=== PATIENT | female | born 1955 | race Caucasian/White ===

== ENCOUNTER → 2017-12-12 21:22 | Outpatient (CLI) | payer MEDICARE, SELFPAY | PROVIDERS: Visit Provider Nurse Practitioner | DX: N39.0 Urinary tract infection, site not specified (principal) | CPT/HCPCS: 87077; 87086; 87088; 87186 ==

== ENCOUNTER → 2018-05-26 22:03 | Outpatient (CLI) | payer MEDICARE, SELFPAY ==
[2018-05-26 16:00] VITALS: BMI 35.4
== END ==
PROVIDERS: Family Provider Family Medicine; PCP Family Medicine; Referring Provider Nurse Practitioner; Visit Provider Nurse Practitioner
DX: R53.83 Other fatigue (principal)
CPT/HCPCS: 87077; 87086; 87088; 87186

== ENCOUNTER → 2018-06-08 22:00 | Outpatient (CLI) | payer MEDICARE, SELFPAY ==
[2018-06-08 16:25] VITALS: BMI 34.9
[2018-06-08 22:18] LABS: Absolute Lymphocyte Count 2.32 X10^3/ul (0.83-4.51); Basophil# 0.05 X10^3/uL; Basophil% 0.7 % (0-1); Eosinophil# 0.11 X10^3/uL; Eosinophils% 1.5 % (0-5); Hematocrit 45.7 % (37-47); Hemoglobin 14.8 g/dl (12.0-15.0); Lymphocyte # 2.32 X10^3/ul (4.0); Lymphocyte % 32.3 % (19-41); Mean Corp Hgb Conc 32.4 g/gl (32-36); Mean Corpuscular Hgb 29.7 pg (27.0-32.0); Mean Corpuscular Volume 91.8 fL (81-99); Mean Platelet Vol. 9.4 fl (6.2-12.0); Monocyte# 0.74 X10^3/uL; Monocyte% 10.3 % (0-10); Neutrophil # 3.95 X10^3/uL (2.7-7.7); Neutrophil % 54.9 % (47-70); Platelet Count 335 K/mm3 (150-450); RBC Distribution Width SD 46.1 fl (35.1-43.9); Red Blood Count 4.98 M/mm3 (4.2-5.4); White Blood Count 7.2 K/mm3 (4.4-11.0)
[2018-06-08 22:19] LABS: POSITIVE COUNT NO; POSITIVE DIFFERENTIAL NO; POSITIVE MORPHOLOGY NO
[2018-06-08 22:50] LABS: AST(SGOT) 15 U/L (15-37); Alanine Aminotransfer ALT/SGPT 25 U/L (13-56); Albumin, Serum 3.7 g/dL (3.2-5.0); Alkaline Phosphatase 82 U/L (45-117); Anion Gap 8 (5-15); BUN 22 mg/dL (7-18); BUN/Creat Ratio 22.9 RATIO (10-20); Calcium,Total 8.4 mg/dL (8.5-10.1); Chloride 107 mmol/L (98-107); Cholesterol 211 mg/dL (200); Creatinine, Serum 0.96 mg/dL (0.55-1.02); EST Glomerular Filtration Rate 62 mL/min (>60); Est Glom Filt Rate - Afr Amer 75 mL/min (>60); Globulin 3.7 g/dL (2.2-4.2); Glucose 95 mg/dL (74-106); High Density Lipoprotein 78 mg/dL; Protein, Total 7.4 g/dL (6.4-8.2); Sodium Level 139 mmol/L (136-145); Thyroid Stim Hormone (TSH) 1.05 uIU/mL (0.358-3.74); Triglycerides 182 mg/dL; Very Low Density Lipoprotein 36 mg/dL (5-40)
== END ==
PROVIDERS: Family Provider Family Medicine; PCP Family Medicine; Visit Provider Nurse Practitioner
DX: E78.00 Pure hypercholesterolemia, unspecified (principal); E55.9 Vitamin D deficiency, unspecified; R53.83 Other fatigue
CPT/HCPCS: 80053; 80061; 82652; 84443; 85025

== ENCOUNTER → 2018-12-03 23:09 | Outpatient (CLI) | payer MEDICARE, SELFPAY ==
--- NOTE | 2018-12-03 | LES_PTH ---
PATIENT: HOSSEIN VELA LOC: [facility] U#:[id number] AGE/SX: 69/F ROOM: RE12/03/[address]: ARPIT Johnston : 1955 BED: DIS: SPEC #: [id number] RECD: 12/03/18 23:18 STATUS: ILIA EZ #: [id number] EMIGDIO: 12/03/18 00:[address]: Emilie Hammond NP DEPT: SURGICAL PATHOLOGY RECD BY: Luis Keenan ENTERED: 12/04/18 08:48 SP TYPE: Lesion OTHR DR: Dr. Gilbert Jaime MD Tissues: Skin, NOS Procedures: PAS Fungus (control) Special Stain Group I Surgery Specimen Level IV HEADER OPERATION: Biopsy PRE-OP DIAGNOSIS: Superficial mycosis TISSUE SUBMITTED: Right flank MICROSCOPIC DIAGNOSIS Right flank lesion, punch biopsy: Dermal chronic inflammation. Negative for malignancy. Special stain for fungi is negative for organisms; matched controls are appropriate. SJ:sebastian 12/07/18 MICROSCOPIC DESCRIPTION Slides are reviewed. GROSS DESCRIPTION Received in fixative is one container labeled with the patient's name and designated right flank. The specimen consists of a punch biopsy of uriostegui skin measuring 0.7 x 0.7 x 0.3 cm. The specimen is inked, bisected and totally submitted in one cassette. / AM:sebastian 12/04/18 TC:3 CPT: 19672, 73276
[2018-12-03 15:10] VITALS: BMI 37.4
[2018-12-03 23:19] LABS: Absolute Lymphocyte Count 2.65 X10^3/uL (0.83-4.51); Absolute Neutrophil Count 2.7 X10^3/uL (2.0-7.7); Basophil# 0.04 X10^3/uL; Basophil% 0.7 % (0-1); Eosinophil# 0.19 X10^3/uL; Eosinophils% 3.1 % (0-5); Hematocrit 43.6 % (37-47); Hemoglobin 13.9 g/dL (12.0-15.0); Lymphocyte # 2.65 X10^3/ul (4.0); Lymphocyte % 43.6 % (19-41); Mean Corp Hgb Conc 31.9 g/dL (32-36); Mean Corpuscular Hgb 28.6 pg (27.0-32.0); Mean Corpuscular Volume 89.7 fL (81-99); Mean Platelet Vol. 9.6 fl (6.2-12.0); Monocyte# 0.52 X10^3/uL; Monocyte% 8.6 % (0-10); NRBC Flagged by Analyzer 0 % (0-5); Neutrophil # 2.67 X10^3/uL (2.7-7.7); Neutrophil % 43.8 % (47-70); Platelet Count 253 K/mm3 (150-450); RBC Distribution Width CV 13.2 % (11.6-14.6); RBC Distribution Width SD 43.2 fl (35.1-43.9); Red Blood Count 4.86 M/mm3 (4.2-5.4); White Blood Count 6.1 K/mm3 (4.4-11.0)
[2018-12-03 23:31] LABS: ALB/GLOB Ratio 1.1 RATIO (0.9-2.4); AST(SGOT) 28 U/L (15-37); Alanine Aminotransfer ALT/SGPT 37 U/L (13-56); Albumin, Serum 3.7 g/dL (3.2-5.0); Alkaline Phosphatase 61 U/L (45-117); Anion Gap 8 (5-15); BUN 18 mg/dL (7-18); BUN/Creat Ratio 22.7 RATIO (10-20); CRP 3.48 mg/L (0.0-3.0); Calcium,Total 8.9 mg/dL (8.5-10.1); Chloride 107 mmol/L (98-107); Creatinine, Serum 0.79 mg/dL (0.55-1.02); EST Glomerular Filtration Rate 78 mL/min (>60); Est Glom Filt Rate - Afr Amer 94 mL/min (>60); Globulin 3.3 g/dL (2.2-4.2); Glucose 136 mg/dL (74-106); Potassium 3.6 mmol/L (3.5-5.1); Sodium Level 141 mmol/L (136-145)
[2018-12-08 08:38] LABS: ANTINUCLEAR ANTIBODIES DIRECT Negative (Negative)
== END ==
PROVIDERS: Family Provider Family Medicine; PCP Family Medicine; Referring Provider Nurse Practitioner; Visit Provider Nurse Practitioner
DX: M25.542 Pain in joints of left hand (principal); M25.541 Pain in joints of right hand; M15.1 Heberden's nodes (with arthropathy)
CPT/HCPCS: 80053; 85025; 86038; 86140; 86225; 86235; 86431; 88305; 88312

== ENCOUNTER → 2018-12-11 23:22 | Outpatient (CLI) | payer MEDICARE, SELFPAY ==
[2018-12-03 15:10] VITALS: BMI 37.4
[2018-12-12 00:11] LABS: Thyroid Stim Hormone (TSH) 1.39 uIU/mL (0.358-3.74)
[2018-12-14 15:08] LABS: EBV Acute VCA IgM < 36.0 U/mL (0.0-35.9); EBV Early Antigen IgG <9.0 U/mL (0.0-8.9)
[2018-12-16 10:24] LABS: ANTINUCLEAR ANTIBODIES DIRECT Negative (Negative)
== END ==
PROVIDERS: Family Provider Family Medicine; PCP Family Medicine; Referring Provider Nurse Practitioner; Visit Provider Nurse Practitioner
DX: M25.542 Pain in joints of left hand (principal); M25.541 Pain in joints of right hand; M15.1 Heberden's nodes (with arthropathy); E03.9 Hypothyroidism, unspecified; R53.83 Other fatigue
CPT/HCPCS: 84443; 86038; 86225; 86235; 86663; 86664; 86665

== ENCOUNTER → 2019-04-16 21:58 | Outpatient (CLI) | payer MEDICARE, SELFPAY ==
[2019-04-16 16:06] VITALS: BMI 39.6
[2019-04-16 22:27] LABS: Anion Gap 7 (5-15); BUN 22 mg/dL (7-18); BUN/Creat Ratio 25.8 RATIO (10-20); Calcium,Total 8.9 mg/dL (8.5-10.1); Chloride 103 mmol/L (98-107); Creatinine, Serum 0.85 mg/dL (0.55-1.02); EST Glomerular Filtration Rate 71 mL/min (>60); Est Glom Filt Rate - Afr Amer 86 mL/min (>60); Glucose 99 mg/dL (74-106); Potassium 4.1 mmol/L (3.5-5.1); Sodium Level 138 mmol/L (136-145)
== END ==
PROVIDERS: Family Provider Family Medicine; PCP Family Medicine; Referring Provider Nurse Practitioner; Visit Provider Nurse Practitioner
DX: R60.9 Edema, unspecified (principal)
CPT/HCPCS: 80048

== ENCOUNTER → 2019-05-27 | Outpatient (CLI) | payer MEDICARE, SELFPAY ==
[2019-05-27 15:08] VITALS: BMI 39.6
[2019-05-27 21:48] LABS: Absolute Neutrophil Count 3.8 X10^3/uL (2.0-7.7); Basophil# 0.03 X10^3/uL; Basophil% 0.4 % (0-1); Eosinophil# 0.09 X10^3/uL; Eosinophils% 1.2 % (0-5); Hematocrit 46.5 % (37-47); Hemoglobin 14.4 g/dL (12.0-15.0); Lymphocyte % 38.2 % (19-41); Mean Corpuscular Hgb 27.7 pg (27.0-32.0); Mean Corpuscular Volume 89.6 fL (81-99); Mean Platelet Vol. 9.4 fl (6.2-12.0); Monocyte# 0.63 X10^3/uL; Monocyte% 8.6 % (0-10); NRBC Flagged by Analyzer 0 % (0-5); Neutrophil # 3.76 X10^3/uL (2.7-7.7); Neutrophil % 51.3 % (47-70); Platelet Count 367 K/mm3 (150-450); RBC Distribution Width CV 13.2 % (11.6-14.6); RBC Distribution Width SD 43.2 fl (35.1-43.9); Red Blood Count 5.19 M/mm3 (4.2-5.4); White Blood Count 7.3 K/mm3 (4.4-11.0)
[2019-05-27 21:53] LABS: AST(SGOT) 14 U/L (15-37); Alanine Aminotransfer ALT/SGPT 32 U/L (13-56); Albumin, Serum 3.6 g/dL (3.2-5.0); Alkaline Phosphatase 73 U/L (45-117); Anion Gap 6 (5-15); BUN 28 mg/dL (7-18); BUN/Creat Ratio 30.2 RATIO (10-20); Chloride 106 mmol/L (98-107); Cholesterol 219 mg/dL (200); Creatinine, Serum 0.93 mg/dL (0.55-1.02); EST Glomerular Filtration Rate 65 mL/min (>60); Est Glom Filt Rate - Afr Amer 78 mL/min (>60); Globulin 3.7 g/dL (2.2-4.2); Glucose 98 mg/dL (74-106); High Density Lipoprotein 76 mg/dL; Potassium 3.9 mmol/L (3.5-5.1); Protein, Total 7.3 g/dL (6.4-8.2); Sodium Level 140 mmol/L (136-145); Thyroid Stim Hormone (TSH) 2.67 uIU/mL (0.358-3.74); Triglycerides 162 mg/dL; Very Low Density Lipoprotein 32 mg/dL (5-40)
== END | disposition home or self-care (01) ==
PROVIDERS: PCP Family Medicine; Referring Provider Nurse Practitioner; Visit Provider Nurse Practitioner
DX: E03.9 Hypothyroidism, unspecified (principal); E78.00 Pure hypercholesterolemia, unspecified; R53.83 Other fatigue
CPT/HCPCS: 80053; 80061; 84443; 85025

== ENCOUNTER → 2019-11-30 | Outpatient (CLI) | payer MEDICARE, SELFPAY ==
[2019-11-30 17:13] VITALS: BMI 38.9
[2019-11-30 22:38] LABS: Thyroid Stim Hormone (TSH) 2.71 uIU/mL (0.358-3.74)
[2019-12-02 16:08] LABS: Endomysial Antibody IgA Negative (Negative)
[2019-12-02 17:47] LABS: Immunoglobulin A 311 mg/dL (87-352); t-Transglutaminase IgA <2 U/mL (0-3)
== END | disposition home or self-care (01) ==
PROVIDERS: Referring Provider Nurse Practitioner; Visit Provider Nurse Practitioner
DX: R19.7 Diarrhea, unspecified (principal); E03.9 Hypothyroidism, unspecified
CPT/HCPCS: 82784; 83516; 84443; 86255

== ENCOUNTER → 2020-05-31 | Outpatient (CLI) | payer MEDICARE, SELFPAY ==
[2020-05-31 15:43] VITALS: BMI 40.6
[2020-05-31 22:35] LABS: Absolute Lymphocyte Count 2.72 X10^3/uL (0.83-4.51); Absolute Neutrophil Count 3.8 X10^3/uL (2.0-7.7); Basophil# 0.05 X10^3/uL; Basophil% 0.7 % (0-1); Eosinophil# 0.32 X10^3/uL; Eosinophils% 4.3 % (0-5); Hemoglobin 13.7 g/dL (12.0-15.0); Lymphocyte # 2.72 X10^3/ul (4.0); Lymphocyte % 36.5 % (19-41); Mean Corp Hgb Conc 30.4 g/dL (32-36); Mean Corpuscular Hgb 27.6 pg (27.0-32.0); Mean Corpuscular Volume 90.5 fL (81-99); Mean Platelet Vol. 9.8 fl (6.2-12.0); Monocyte# 0.58 X10^3/uL; Monocyte% 7.8 % (0-10); NRBC Flagged by Analyzer 0 % (0-5); Neutrophil # 3.77 X10^3/uL (2.7-7.7); Neutrophil % 50.4 % (47-70); Platelet Count 317 K/mm3 (150-450); RBC Distribution Width CV 14.7 % (11.6-14.6); RBC Distribution Width SD 49.1 fl (35.1-43.9); Red Blood Count 4.97 M/mm3 (4.2-5.4); White Blood Count 7.5 K/mm3 (4.4-11.0)
[2020-05-31 22:56] LABS: Vitamin B12 814 pg/mL (211-911)
[2020-05-31 22:59] LABS: AST(SGOT) 42 U/L (15-37); Alanine Aminotransfer ALT/SGPT 51 U/L (13-56); Albumin, Serum 3.7 g/dL (3.2-5.0); Alkaline Phosphatase 98 U/L (45-117); Anion Gap 8 (5-15); BUN 17 mg/dL (7-18); Chloride 103 mmol/L (98-107); Cholesterol 217 mg/dL (200); Creatinine, Serum 0.68 mg/dL (0.55-1.02); EST Glomerular Filtration Rate 92 mL/min (>60); Est Glom Filt Rate - Afr Amer 111 mL/min (>60); Globulin 3.6 g/dL (2.2-4.2); Glucose 105 mg/dL (74-106); High Density Lipoprotein 51 mg/dL; Potassium 3.4 mmol/L (3.5-5.1); Protein, Total 7.3 g/dL (6.4-8.2); Sodium Level 139 mmol/L (136-145); Thyroid Stim Hormone (TSH) 1.14 uIU/mL (0.358-3.74); Triglycerides 214 mg/dL; Very Low Density Lipoprotein 43 mg/dL (5-40)
[2020-06-05 13:47] LABS: Vitamin D 1,25-Dihydroxy 36.2 pg/mL (19.9-79.3)
== END | disposition home or self-care (01) ==
PROVIDERS: Referring Provider Nurse Practitioner; Visit Provider Nurse Practitioner
DX: E78.5 Hyperlipidemia, unspecified (principal); E03.9 Hypothyroidism, unspecified; E55.9 Vitamin D deficiency, unspecified; F32.9 Major depressive disorder, single episode, unspecified; R53.83 Other fatigue
CPT/HCPCS: 80053; 80061; 82607; 82652; 84443; 85025

== ENCOUNTER 2021-07-17 21:41 | Outpatient (CLI) | payer MEDICARE, SELFPAY ==
[2021-07-17 21:51] LABS: Absolute Lymphocyte Count 3.42 X10^3/uL (0.83-4.51); Absolute Neutrophil Count 3.7 X10^3/uL (2.0-7.7); Basophil# 0.06 X10^3/uL; Basophil% 0.7 % (0-1); Eosinophil# 0.13 X10^3/uL; Eosinophils% 1.6 % (0-5); Hematocrit 47.6 % (37-47); Hemoglobin 15.7 g/dL (12.0-15.0); Lymphocyte # 3.42 X10^3/ul (0.83-4.51); Lymphocyte % 42.5 % (19-41); Mean Corpuscular Volume 93.9 fL (81-99); Mean Platelet Vol. 10.2 fl (6.2-12.0); Monocyte# 0.69 X10^3/uL; Monocyte% 8.6 % (0-10); NRBC Flagged by Analyzer 0 % (0-5); Neutrophil # 3.73 X10^3/uL (2.7-7.7); Neutrophil % 46.5 % (47-70); Platelet Count 325 K/mm3 (150-450); RBC Distribution Width CV 12.7 % (11.6-14.6); RBC Distribution Width SD 43.4 fl (35.1-43.9); Red Blood Count 5.07 M/mm3 (4.2-5.4)
[2021-07-17 22:13] LABS: AST(SGOT) 45 U/L (15-37); Alanine Aminotransfer ALT/SGPT 55 U/L (13-56); Alkaline Phosphatase 114 U/L (45-117); Anion Gap 7 (5-15); BUN 21 mg/dL (7-18); BUN/Creat Ratio 20.4 RATIO (10-20); Calcium,Total 9.4 mg/dL (8.5-10.1); Chloride 103 mmol/L (98-107); Cholesterol 191 mg/dL (200); Creatinine, Serum 1.03 mg/dL (0.55-1.02); EST Glomerular Filtration Rate 57 mL/min (>60); Est Glom Filt Rate - Afr Amer 69 mL/min (>60); Globulin 4.1 g/dL (2.2-4.2); Glucose 110 mg/dL (74-106); High Density Lipoprotein 56 mg/dL; Potassium 4.5 mmol/L (3.5-5.1); Protein, Total 8.1 g/dL (6.4-8.2); Sodium Level 137 mmol/L (136-145); Thyroid Stim Hormone (TSH) 5.67 uIU/mL (0.358-3.74); Triglycerides 137 mg/dL; Very Low Density Lipoprotein 27 mg/dL (5-40)
== END 2021-07-17 23:59 | disposition home or self-care (01) ==
PROVIDERS: Referring Provider Nurse Practitioner; Visit Provider Nurse Practitioner
DX: I10 Essential (primary) hypertension (principal); E03.9 Hypothyroidism, unspecified; E78.00 Pure hypercholesterolemia, unspecified
CPT/HCPCS: 80053; 80061; 84443; 85025

== ENCOUNTER → 2021-08-13 | Outpatient (CLI) | payer MEDICARE, SELFPAY ==
[2021-08-13 23:11] LABS: ALB/GLOB Ratio 0.9 RATIO (0.9-2.4); AST(SGOT) 44 U/L (15-37); Alanine Aminotransfer ALT/SGPT 66 U/L (13-56); Albumin, Serum 3.3 g/dL (3.2-5.0); Alkaline Phosphatase 119 U/L (45-117); Anion Gap 9 (5-15); BUN 11 mg/dL (7-18); BUN/Creat Ratio 17.4 RATIO (10-20); Calcium,Total 8.3 mg/dL (8.5-10.1); Chloride 103 mmol/L (98-107); Creatinine, Serum 0.63 mg/dL (0.55-1.02); EST Glomerular Filtration Rate 100 mL/min (>60); Est Glom Filt Rate - Afr Amer 121 mL/min (>60); Globulin 3.7 g/dL (2.2-4.2); Glucose 102 mg/dL (74-106); Potassium 3.4 mmol/L (3.5-5.1); Sodium Level 137 mmol/L (136-145); Thyroid Stim Hormone (TSH) 3.85 uIU/mL (0.358-3.74)
== END | disposition home or self-care (01) ==
PROVIDERS: Referring Provider Nurse Practitioner; Visit Provider Nurse Practitioner
DX: E03.9 Hypothyroidism, unspecified (principal); R74.8 Abnormal levels of other serum enzymes; R53.82 Chronic fatigue, unspecified
CPT/HCPCS: 80053; 84443

== ENCOUNTER → 2021-09-19 | Outpatient (CLI) | payer MEDICARE, SELFPAY ==
[2021-09-19 21:52] LABS: Absolute Lymphocyte Count 1.75 X10^3/uL (0.83-4.51); Absolute Neutrophil Count 1.7 X10^3/uL (2.0-7.7); Basophil# 0.02 X10^3/uL; Basophil% 0.5 % (0-1); Eosinophil# 0.02 X10^3/uL; Eosinophils% 0.5 % (0-5); Hematocrit 42.4 % (37-47); Hemoglobin 13.3 g/dL (12.0-15.0); Lymphocyte # 1.75 X10^3/ul (0.83-4.51); Lymphocyte % 42.2 % (19-41); Mean Corp Hgb Conc 31.4 g/dL (32-36); Mean Corpuscular Hgb 29.1 pg (27.0-32.0); Mean Corpuscular Volume 92.8 fL (81-99); Monocyte# 0.64 X10^3/uL; Monocyte% 15.4 % (0-10); NRBC Flagged by Analyzer 0 % (0-5); Neutrophil # 1.71 X10^3/uL (2.7-7.7); Neutrophil % 41.2 % (47-70); Platelet Count 242 K/mm3 (150-450); RBC Distribution Width CV 12.9 % (11.6-14.6); RBC Distribution Width SD 43.8 fl (35.1-43.9); Red Blood Count 4.57 M/mm3 (4.2-5.4); White Blood Count 4.2 K/mm3 (4.4-11.0)
[2021-09-19 22:10] LABS: AST(SGOT) 71 U/L (15-37); Alanine Aminotransfer ALT/SGPT 59 U/L (13-56); Albumin, Serum 3.5 g/dL (3.2-5.0); Alkaline Phosphatase 86 U/L (45-117); Anion Gap 9 (5-15); BUN 11 mg/dL (7-18); BUN/Creat Ratio 16.5 RATIO (10-20); Calcium,Total 8.8 mg/dL (8.5-10.1); Chloride 104 mmol/L (98-107); Creatinine, Serum 0.67 mg/dL (0.55-1.02); EST Glomerular Filtration Rate 94 mL/min (>60); Est Glom Filt Rate - Afr Amer 114 mL/min (>60); Globulin 3.5 g/dL (2.2-4.2); Glucose 111 mg/dL (74-106); Potassium 3.6 mmol/L (3.5-5.1); Sodium Level 139 mmol/L (136-145); Thyroid Stim Hormone (TSH) 0.27 uIU/mL (0.358-3.74)
[2021-09-21 08:52] LABS: Thyroid Peroxidase AB 48 IU/mL (0-34)
== END | disposition home or self-care (01) ==
PROVIDERS: Visit Provider Nurse Practitioner
DX: E53.8 Deficiency of other specified B group vitamins (principal); R74.8 Abnormal levels of other serum enzymes; J32.0 Chronic maxillary sinusitis; J40 Bronchitis, not specified as acute or chronic; H66.92 Otitis media, unspecified, left ear; R53.82 Chronic fatigue, unspecified; E03.9 Hypothyroidism, unspecified
CPT/HCPCS: 80053; 84443; 85025; 86376

== ENCOUNTER → 2021-11-20 | Outpatient (CLI) | payer MEDICARE, SELFPAY ==
[2021-11-20 23:26] LABS: AST(SGOT) 46 U/L (15-37); Alanine Aminotransfer ALT/SGPT 51 U/L (13-56); Albumin, Serum 3.8 g/dL (3.2-5.0); Alkaline Phosphatase 103 U/L (45-117); Anion Gap 5 (5-15); BUN 13 mg/dL (7-18); BUN/Creat Ratio 15.8 RATIO (10-20); Calcium,Total 9.4 mg/dL (8.5-10.1); Chloride 108 mmol/L (98-107); Creatinine, Serum 0.82 mg/dL (0.55-1.02); EST Glomerular Filtration Rate 73 mL/min (>60); Est Glom Filt Rate - Afr Amer 89 mL/min (>60); Globulin 3.9 g/dL (2.2-4.2); Glucose 118 mg/dL (74-106); Protein, Total 7.7 g/dL (6.4-8.2); Sodium Level 139 mmol/L (136-145)
[2021-11-22 13:08] LABS: Anti-Centromere B Ab <0.2 AI (0.0-0.9); Anti-Chromatin <0.2 AI (0.0-0.9); Anti-Jo <0.2 AI (0.0-0.9); Anti-Scleroderma-70 AB <0.2 AI (0.0-0.9); RNP Ab 0.4 AI (0.0-0.9); SJOGREN'S Anti-SS-A test < 0.2 AI (0.0-0.9); SJOGREN'S Anti-SS-B test < 0.2 AI (0.0-0.9); Smith Ab <0.2 AI (0.0-0.9)
[2021-11-22 16:26] LABS: Anti-dsDNA Ab <1 IU/mL (0-9)
== END | disposition home or self-care (01) ==
PROVIDERS: Visit Provider Nurse Practitioner
DX: K90.9 Intestinal malabsorption, unspecified (principal)
CPT/HCPCS: 80053; 86140; 86225; 86235

== ENCOUNTER → 2023-04-16 | Outpatient (CLI) | payer MEDICARE, SELFPAY ==
--- OUTSIDE RECORDS SUMMARY | 2023-04-16 22:36 | XMS RPT_ITS | CCD ---
Author Name Unknown Address [address] [place] [address] Organization [facility] Care Team Providers [employer] Consultant Name Role Phone MADI ALEXANDER Unavailable Unavailable BARRAZA, ALEXANDER Unavailable Unavailable NO REFERRING DR Unavailable Unavailable BARRAZA, ALEXANDER L Unavailable Unavailable MADI ALEXANDER L Unavailable Unavailable Gt Crawford MD Unavailable Gt Crawford MD Unavailable [phone] Davon DOVE [facility] Primary Care Provider [phone] Davon DOVE [facility] Primary Care Provider [phone] Madi ERCO MACHINE OPERATOR.Alexander CINTRON Primary Care Provide r Gt Crawford MD Unavailable Gt Crawford MD Unavailable [phone] Madi ERCO MACHINE OPERATOR.Alexander CINTRON Primary Care Provide r LILI OJEDA Referring Unavailable LILI OJEDA Attending Unavailable MADI, ALEXANDER L Primary Care Unavailable CHASE PAZ Referring Unavailable BARRAZA, ALEXANDER L Primary Care Unavailable BARRAZA, ALEXANDER L Primary Care Unavailable BARRAZA, ALEXANDER L Primary Care Unavailable BARRAZA, ALEXANDER L Primary Care Unavailable Allergies Allergy Classification Reported Allergen(s) Allergy Type Date of Onset Reaction(s) Facility (1 source) bacitracin / polymyxin b; Translations: [POLYSPORIN] Drug Allergy [facility] Repository (18 sources) sulfiSOXAZOLE; Translations: [GANTRISIN] Drug Allergy 6 Cough, Other: See Comments [facility] Repository (1 source) SHELLFISH CONTAINING; Translations: [SHELLFISH CONTAINING] Propensity to adverse reactions (disorder) [facility] Repository (1 source) SULFA(SULFONAMID E AN; Translations: [SULFA(SULFONAMI DE AN] Propensity to adverse reactions (disorder) [facility] Repository (1 source) Shellfish; Translations: [SHELLFISH] Propensity to adverse reactions to food (disorder) 3 [facility] Repository (17 sources) Sulfonamides (Antibiotic); Translations: [SULFA (SULFONAMIDE ANTIBIOTICS)] Propensity to adverse reactions to drug (disorder) 2 Shortness of Breath [facility] Repository (17 sources) BACITRACIN-POLYM YXIN B; Translations: [BACITRACIN-POLY MYXIN B] Propensity to adverse reactions to drug (disorder) 6 Rash, Hives [facility] Repository (16 sources) Vancomycin; Translations: [VANCOMYCIN] Drug Allergy 1 Rash [facility] Medications Current Medications Medication Drug Class(es) Dates Sig (Normalized) Sig (Original) ALPRAZolam 0.25 mg oral tablet (13 sources) Benzodiazepine Start: 09-04-2021 End: 05-20-2022 take 1 tablet by mouth at bedtime as needed for anxiety ALPRAZolam (XANAX) 0.25 mg tablet Indications: Anxiety neurosis Take 1 tablet by mouth at bedtime as needed for anxiety for up to 180 days. 30 tablet 5 11/21/2021 05/20/2022 Active Completed/Discontinued Medications Medication Drug Class(es) Dates Sig (Normalized) Sig (Original) amoxicillin 875 mg / clavulanate 125 mg oral tablet (12 sources) Penicillin-class Antibacterial Start: 08-13-2021 End: 09-10-2022 take 1 tablet by mouth twice daily amoxicillin-clavul anic acid (AUGMENTIN) 875-125 mg per tablet Take 1 tablet by mouth twice daily. 0 08/13/2021 09/10/2022 Discontinued (Course of therapy completed) Problems Active Problems Problem Classification Problem Date Documented Da te Episodic/Chronic Anxiety disorders (17 sources) Mixed anxiety and depressive disorder; Translations: [Anxiety disorder, unspecified] Onset: 12-28-2020 12-28-2020 Chronic Disorders of lipid metabolism (14 sources) Hypercholesterolemi a; Translations: [Pure hypercholesterolemi a, unspecified] Onset: 03-02-2020 03-02-2020 Chronic Essential hypertension (15 sources) Hypertensive disorder; Translations: [Essential (primary) hypertension] Onset: 10-28-2020 10-28-2020 Chronic Mood disorders (1 source) Mood disorders; Translations: [Anxiety and depression] Onset: 12-28-2020 Nausea and vomiting (15 sources) Nausea and vomiting; Translations: [Nausea with vomiting, unspecified] Onset: 11-03-2020 11-03-2020 Episodic Nutritional deficiencies (20 sources) Vitamin D deficiency; Translations: [Vitamin D deficiency, unspecified] Onset: 02-17-2013 02-17-2013 Chronic Osteoarthritis (15 sources) Unilateral primary osteoarthritis, left knee; Translations: [Osteoarthritis of knee] Onset: 02-21-2014 02-21-2014 Chronic Other circulatory disease (14 sources) Raynaud's disease; Translations: [Raynaud's syndrome without gangrene] Onset: 09-12-2011 01-04-2013 Chronic Other connective tissue disease (14 sources) History of total knee arthroplasty; Translations: [Presence of left artificial knee joint] Onset: 08-02-2020 08-02-2020 Chronic Other gastrointestinal disorders (1 source) Swollen abdomen; Translations: [Abdominal distension (gaseous)] Episodic Other liver diseases (2 sources) Lesion of liver; Translations: [Liver disease, unspecified] Chronic Other liver diseases (1 source) Enzyme level - finding; Translations: [Abnormal levels of other serum enzymes] Episodic Other non-traumatic joint disorders (1 source) Chronic pain of right upper limb; Translations: [Pain in right shoulder] Episodic Other non-traumatic joint disorders (1 source) Shoulder pain; Translations: [Pain in right shoulder] Episodic Other nutritional; endocrine; and metabolic disorders (14 sources) Obese class II; Translations: [Obesity, unspecified] Onset: 03-13-2020 07-14-2020 Chronic Other nutritional; endocrine; and metabolic disorders (14 sources) Body mass index 40+ - severely obese; Translations: [Morbid (severe) obesity due to excess calories] Onset: 05-18-2021 05-18-2021 Chronic Other screening for suspected conditions (not mental disorders or infectious disease) (1 source) Radiology result abnormal; Translations: [Abnormal findings on diagnostic imaging of other specified body structures] Chronic Pancreatic disorders (not diabetes) (16 sources) Acute necrotizing pancreatitis; Translations: [Acute pancreatitis with uninfected necrosis, unspecified] Onset: 10-18-2020 11-03-2020 Episodic Phlebitis; thrombophlebitis and thromboembolism (17 sources) Acute thrombosis of splenic vein; Translations: [Acute embolism and thrombosis of other specified veins] Onset: 11-11-2020 11-11-2020 Episodic Spondylosis; intervertebral disc disorders; other back problems (14 sources) Backache; Translations: [Dorsalgia, unspecified] 01-04-2013 Episodic Thyroid disorders (14 sources) Disorder of thyroid gland; Translations: [Disorder of thyroid, unspecified] 10-28-2020 Episodic Past or Other Problems Problem Classification Problem Date Documented Date Episodic/Chronic Abdominal pain (1 source) Epigastric pain; Translations: [Epigastric pain] Onset: 07-03-2022 Episodic Biliary tract disease (14 sources) Acute cholecystitis; Translations: [Acute cholecystitis] Onset: 09-05-2020 09-07-2020 Episodic Other connective tissue disease (2 sources) Calcaneal spur, left foot; Translations: [Pain in left foot] Onset: 10-28-2016 Episodic Other connective tissue disease (14 sources) Plantar fasciitis of right foot; Translations: [Plantar fascial fibromatosis] Onset: 05-26-2015 05-26-2015 Episodic Other non-traumatic joint disorders (3 sources) Pain in left knee; Translations: [PAIN IN LEFT KNEE] Onset: 10-28-2016 Episodic Other screening for suspected conditions (not mental disorders or infectious disease) (1 source) Abnormal results of liver function studies; Translations: [Nonspecific abnormal results of liver function study] Onset: 01-21-2022 Episodic Residual codes; unclassified (14 sources) History of arthroscopy of knee joint; Translations: [Other specified postprocedural states] Onset: 03-14-2020 03-22-2020 Episodic Results Test Name Value Interpretation Reference Range Facil ity Vital Signs Date Time Vital Sign Value Performing Clinician Chas sherman 09-10-2022 10:29-0400 Body temperature 96.6 [degF] Lili Ojeda MD Work Phone: [facility] 09-10-2022 10:29-0400 Body weight 113.04 kg Lili Ojeda MD Work Phone: [facility] 09-10-2022 10:29-0400 Diastolic blood pressure 66 mm[Hg] Lili Ojeda MD Work Phone: [facility] 09-10-2022 10:29-0400 Heart rate 80 /min Lili Ojeda MD Work Phone: [facility] 09-10-2022 10:29-0400 SaO2% (BldA) [Mass fraction] 95 % Lili Ojeda MD Work Phone: [facility] 09-10-2022 10:29-0400 Systolic blood pressure 105 mm[Hg] Lili Ojeda MD Work Phone: [facility] 09-04-2021 10:28-0400 Body temperature 97 [degF] Lili Ojeda MD Work Phone: [facility] 09-04-2021 10:28-0400 Body weight 106.19 kg Lili Ojeda MD Work Phone: [facility] 09-04-2021 10:28-0400 Diastolic blood pressure 77 mm[Hg] Lili Ojeda MD Work Phone: [facility] 09-04-2021 10:28-0400 Heart rate 88 /min Lili Ojeda MD Work Phone: [facility] 09-04-2021 10:28-0400 SaO2% (BldA) [Mass fraction] 97 % Lili Ojeda MD Work Phone: [facility] 09-04-2021 10:28-0400 Systolic blood pressure 127 mm[Hg] Lili Ojeda MD Work Phone: [facility] 08-17-2021 09:33-0400 Body height 167.6 cm Alvin Vásquez MD Work Phone: [facility] 08-17-2021 09:33-0400 Body weight 102.51 kg Alvin Vásquez MD Work Phone: [facility] Encounters Encounter Date Encounter Type Care Provider Facility Start: 11-26-2022 End: 11-26-2022 Emergency department patient visit ALEXANDER BARRAZA Facility:[facility] Start: 11-25-2022 End: 11-26-2022 ambulatory ALEXANDERJadiel BARRAZA Facility:[facility] Start: 09-10-2022 End: 09-10-2022 ambulatory LILI OJEDA Facility:[facility] Start: 09-10-2022 End: 09-10-2022 Office outpatient visit 15 minutes Lili Ojeda MD Work Phone: Hematology/Oncology Procedures Date Procedure Procedure Detail Performing Clinician Start: 10-17-2021 Mri abdomen w/o & w/contrast material Chase Paz MD Work Phone: Start: 09-04-2021 Blood count complete auto&auto difrntl wbc Lili Ojeda MD Work Phone: Start: 08-17-2021 Arthrocentesis aspir &/inj major jt/bursa w/o us Alvin Vásquez MD Work Phone: Start: 10-27-2017 Mammography Alvin monte MD Work Phone: Plan of Treatment Date Care Activity Detail Author Start: 07-03-2025 DIABETES SCREEN DIABETES SCREEN [facility] Start: 03-28-2025 Urine microalbumin profile DTAP,TDAP,TD (2 - Td or Tdap) [facility] Start: 10-09-2024 DIABETES SCREEN DIABETES SCREEN [facility] Start: 09-04-2024 DIABETES SCREEN DIABETES SCREEN [facility] Start: 08-05-2024 DIABETES SCREEN DIABETES SCREEN [facility] Start: 09-11-2023 BP CONTROLLED (<130/80) BP CON TROLLED (<130/80) [facility] Start: 12-20-2022 Influenza vaccination INFLUENZ A (Season Ended) [facility] Start: 09-04-2022 BP CONTROLLED (<130/80) BP CON TROLLED (<130/80) [facility] Start: 04-21-2022 ADVANCE DIRECTIVE DISCUSSION ADVANCE DIRECTIVE DISCUSSION [facility] Start: 12-20-2021 Influenza vaccination [facility] Start: 10-23-2021 End: 12-23-2021 CBC W Auto Differential panel - Blood CBC + DIFF Lab Routine Abdominal distention Abnormal levels of other serum enzymes Expected: 10/23/2021, Expires: 12/23/2021 [facility] Work Phone: Immunizations Immunization Date Immunization Notes Care Provider Nasim bernardphani 03-28-2015 tetanus toxoid, redu jane diphtheria toxoid, and acellular pertussis vaccine, adsorbed Alvin Vásquez MD Work Phone: [facility] Payers Date Payer Category Payer Medicare HU[employer]NA MEDICARE HU[employer]NA MEDICARE PPO [id number] 2022-Present [phone] [place] [address] PPO [id number] 2017 Medicare HUMANA MEDICARE HU[employer]NA MEDICARE PPO [id number] 2017-Present [phone] [address] [place] [address] PPO [id number] 2017 Private Health Insurance [id number] Social History Date Type Detail Facility Start: 05-26-2014 End: 03-02-2020 Tobacco smoking status NHIS Ex-smoker [facility] End: 05-26-1981 History of tobacco use Current smoker [facility] Start: 05-26-2014 End: 03-02-2020 Tobacco use and exposure Smokeless tobacco non-user [facility] Start: 05-18-2021 End: 09-10-2022 Alcohol intake Current non-drinker of alcohol (finding) [facility] Start: 03-17-2020 History SDOH Financial 5 [facility] Start: 03-17-2020 History SDOH Food Worry 1 [facility] Start: 03-17-2020 History SDOH Transpo rt Med 2 [facility] Start: 1955 Sex Assigned At Female [facility] Start: 07-28-2021 End: 08-07-2021 Exposure to SARS-CoV-2 (event) Unable to assess [facility] Start: 08-07-2021 End: 11-12-2021 Exposure to SARS-CoV-2 (event) Not sure [facility] End: 05-26-1981 History of tobacco use Cigarette Smoker [facility] Work Phone: Medical Equipment Procedure Code Equipment Code Equipment Origin al Text Equipment Identifier Dates Cement Simplex P Bone Radiopaque Full Dose Sterile - [id number] Start: 03-13-2020 Cement Simplex P Bone Radiopaque Full Dose Sterile - [id number] Start: 07-31-2020 Component Triath tova 5 Femoral Cruciate Retain Cemented Knee Right - [id number] Start: 03-13-2020 Insert Triathlon 4 9mm Tibial Bearing Cruciate Retain Sterile Knee - [id number] Start: 03-13-2020 Component Triath tova 5 Femoral Cruciate Retain Cemented Knee Left - [id number] Start: 07-31-2020 Insert Triathlon 4 9mm Tibial Bearing Cruciate Retain Sterile Knee - [id number] Start: 07-31-2020 Component Triath tova 35mm 10mm Patellar Asymmetric Knee - [id number] Start: 03-13-2020 Component Triath tova 35mm 10mm Patellar Asymmetric Knee - [id number] Start: 07-31-2020 Baseplate Triath tova 4 Tibial Primary Cement Knee - [id number] Start: 03-13-2020 Baseplate Triath tova 4 Tibial Primary Cement Knee - [id number] Start: 07-31-2020 Goals Date Patient Goal Desired Activity /State Clinical Notes 01-04-2021 to 09-10-2022 Patient InstructionsLili Ojeda MD - 09/10/2022 10:54 AM EDTTelephone Encounter - Bekah Mahan LPN - 07/12/2022 8:56 AM EDTTelephone Encounter - Magnolia March - 07/05/2022 1:28 PM EDT Note Date & Type Note Facility 09-10-2022 Note HNO ID: [id number] Author: Lili Ojeda MD Service: ? Author Type: Physician Type: Progress Notes Filed: 10/09/2022 11:58 PM Note Text: Referring physician: Christiano Lloyd DO Presenting complaint: Patient Poppy Carrera returns for follow-up on splenic vein thrombosis and anticoagulation. 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 Patient was discharged on 11/14/2020 on full dose Lovenox. Patient was transitioned to xarelto 20 mg daily on 2020. Plan: CT abdomen and pelvis with contrast on 08/05/2021 showed persistent splenic vein thrombosis with varices, hepatomegaly with diffuse fatty change, hypoattenuating enhancing right hepatic lobe lesion measuring before about 1.8 cm x 1.6 cm but somewhat smaller on current imaging. Continue chronic anticoagulation with Xarelto. Rx was sent to her pharmacy. (K76.9) Liver lesion Comment: CT abdomen and pelvis with contrast on 03/05/2021 showed resolved peripancreatic inflammation, persistent splenic vein thrombosis with varices, hepatomegaly with diffuse fatty change, enhancing right hepatic lobe lesion measuring 1.8 cm x 1.[address] abdomen and pelvis with contrast on 08/05/2021 showed persistent splenic vein thrombosis with varices, hepatomegaly with diffuse fatty change, hypoattenuating enhancing right hepatic lobe lesion measuring before about 1.8 cm x 1.6 cm but somewhat smaller on current imaging. She underwent liver CT guided biopsy on 11/12/2021 with report of steatohepatitis with perisinusoidal fibrosis and periportal fibrosis. Reportedly diagnosis of cirrhosis was discussed by GI. Plan: continue follow-up with Dr. Chase Paz with GI. Return in about 53 weeks (around 09/16/2023) for follow-up with provider. Mild complexity decision making/ counseling/ care I spent 20 minutes in the visit, with more than 50% of the total [id number] time of the visit in counseling / coordination of care. 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 Patient was discharged on 11/14/2020 on full dose Lovenox. The patient's administered Lovenox. Patient was transitioned to xarelto 20 mg daily on 2020. CT abdomen and pelvis with contrast on 03/05/2021 showed resolved peripancreatic inflammation, persistent splenic vein thrombosis with varices, hepatomegaly with diffuse fatty change, enhancing right hepatic lobe lesion measuring 1.8 cm x 1.[address] abdomen and pelvis with contrast on 08/05/2021 showed persistent splenic vein thrombosis with varices, hepatomegaly with diffuse fatty change, hypoattenuating enhancing right hepatic lobe lesion measuring before about 1.8 cm x 1.6 cm but somewhat smaller on current imaging. She underwent liver CT guided biopsy on 11/12/2021 with report of steatohepatitis with perisinusoidal fibrosis and periportal fibrosis. Reportedly diagnosis of cirrhosis was discussed by GI. She agrees to continue anticoagulation with Xarelto. PAST MEDICAL HISTORY Diagnosis Date Anemia Anxiety and depression with anxiety Attention deficit hyperactivity disorder Back pain herniated discs, pain management Bronchitis Candidiasis Chronic meniscal tear of knee 02/21/[address] Stroud- pain managment- not since ~2018 Hamstring tear 2011 right/ had hematoma/ abscess /sepsis History of acute pancreatitis 2020 after LS alexis Hypertension Hypokalemia Menopause Osteoarthritis of knees, bilateral Raynaud disease 09/12/2011 purple toes/ sometimes a couple of fingers Subcutaneous hematoma 2012 R thigh s/p hamstring tear infected s/p drain Thyroid disease hypothyroid PAST SURGICAL HISTORY Procedure Laterality Date ARTHROSCOPY KNEE DIAGNOSTIC W/WO SYNOVIAL BX SPX 03/31/2014 Arthroscopy, knee left ARTHRP KNE CONDYLEANDPLATU MEDIALANDLAT COMPARTMENTS Right 2019 COLONOSCOPY DILATION AND CURETTAGE 1989 bleeding KNEE ARTHROSCOP MENISCUS REPAIR MED/LAT Left 2017 LAPAROSCOPY SURG CHOLECYSTECTOMY 08/2020 PAST SURGICAL HISTORY OF picc line and drain tubes for hamstring infection TOTAL KNEE REPLACEMENT Left 07/2020 FAMILY HISTORY Problem Relation Age of Onset Coronary Artery Disease Mother 58 1VCABG Accidental Mother 83 fell AND had brain bleed, age ~83 Diabetes Father Lymphoma Father age ~74 Systemic Lupus Erythematosus Sister (more content not included)... [facility] 09-10-2022 Instructions Lili Ojeda MD - 09/10/2022 11:37 AM EDT Please schedule follow-up with Dr. Ojeda Thank you documented in this encounter [facility] 09-10-2022 History of Presen t illness Narrative Referring physician: Christiano Lloyd DO Presenting complaint: Patient Poppy Carrera returns for follow-up on splenic vein thrombosis and anticoagulation. 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 Patient was discharged on 11/14/2020 on full dose Lovenox. Patient was transitioned to xarelto 20 mg daily on 2020. Plan: CT abdomen and pelvis with contrast on 08/05/2021 showed persistent splenic vein thrombosis with varices, hepatomegaly with diffuse fatty change, hypoattenuating enhancing right hepatic lobe lesion measuring before about 1.8 cm x 1.6 cm but somewhat smaller on current imaging. Continue chronic anticoagulation with Xarelto. Rx was sent to her pharmacy. (K76.9) Liver lesion Comment: CT abdomen and pelvis with contrast on 03/05/2021 showed resolved peripancreatic inflammation, persistent splenic vein thrombosis with varices, hepatomegaly with diffuse fatty change, enhancing right hepatic lobe lesion measuring 1.8 cm x 1.[address] abdomen and pelvis with contrast on 08/05/2021 showed persistent splenic vein thrombosis with varices, hepatomegaly with diffuse fatty change, hypoattenuating enhancing right hepatic lobe lesion measuring before about 1.8 cm x 1.6 cm but somewhat smaller on current imaging. She underwent liver CT guided biopsy on 11/12/2021 with report of steatohepatitis with perisinusoidal fibrosis and periportal fibrosis. Reportedly diagnosis of cirrhosis was discussed by GI. Plan: continue follow-up with Dr. Chase Paz with GI. Return in about 53 weeks (around 09/16/2023) for follow-up with provider. Mild complexity decision making/ counseling/ care I spent 20 minutes in the visit, with more than 50% of the total [id number] time of the visit in counseling / coordination of care. 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 Patient was discharged on 11/14/2020 on full dose Lovenox. The patient's administered Lovenox. Patient was transitioned to xarelto 20 mg daily on 2020. CT abdomen and pelvis with contrast on 03/05/2021 showed resolved peripancreatic inflammation, persistent splenic vein thrombosis with varices, hepatomegaly with diffuse fatty change, enhancing right hepatic lobe lesion measuring 1.8 cm x 1.[address] abdomen and pelvis with contrast on 08/05/2021 showed persistent splenic vein thrombosis with varices, hepatomegaly with diffuse fatty change, hypoattenuating enhancing right hepatic lobe lesion measuring before about 1.8 cm x 1.6 cm but somewhat smaller on current imaging. She underwent liver CT guided biopsy on 11/12/2021 with report of steatohepatitis with perisinusoidal fibrosis and periportal fibrosis. Reportedly diagnosis of cirrhosis was discussed by GI. She agrees to continue anticoagulation with Xarelto. PAST MEDICAL HISTORY Diagnosis Date Anemia Anxiety and depression with anxiety Attention deficit hyperactivity disorder Back pain herniated discs, pain management Bronchitis Candidiasis Chronic meniscal tear of knee 02/21/[address] Stroud- pain managment- not since ~2018 Hamstring tear 2011 right/ had hematoma/ abscess /sepsis History of acute pancreatitis 2020 after LS alexis Hypertension Hypokalemia Menopause Osteoarthritis of knees, bilateral Raynaud disease 09/12/2011 purple toes/ sometimes a couple of fingers Subcutaneous hematoma 2012 R thigh s/p hamstring tear infected s/p drain Thyroid disease hypothyroid PAST SURGICAL HISTORY Procedure Laterality Date ARTHROSCOPY KNEE DIAGNOSTIC W/WO SYNOVIAL BX SPX 03/31/2014 Arthroscopy, knee left ARTHRP KNE CONDYLE&PLATU MEDIAL&LAT COMPARTMENTS Right 2019 COLONOSCOPY DILATION & CURETTAGE 1989 bleeding KNEE ARTHROSCOP MENISCUS REPAIR MED/LAT Left 2017 LAPAROSCOPY SURG CHOLECYSTECTOMY 08/2020 PAST SURGICAL HISTORY OF picc line and drain tubes for hamstring infection TOTAL KNEE REPLACEMENT Left 07/2020 FAMILY HISTORY Problem Relation Age of Onset Coronary Artery Disease Mother 58 1VCABG Accidental Mother 83 fell & had brain bleed, age ~83 Diabetes Father Lymphoma Father age ~74 Systemic Lupus Erythematosus Sister No Known Problems Sister Cancer Paternal cousin ?maybe breast Cervical Cancer No Family History Ovarian cancer No Family History Uterine Cancer No Family History Colon Cancer No Family History Pancreatic Cancer No Family History Prostate Cancer No Family History SOCIAL HISTORY Social History Tobacco Use Smoking status: Former Types: Cigarettes Quit date: 05/26/1981 Years since quittin.4 Smokeless tobacco: Never Vaping Use Vaping Use: Never used Substance Use Topics Alcohol use: No Drug use: No Comment: no reported history ALLERGIES: ALLERGIES Allergen Reactions Gantrisin Cough, Other: See Comments wheeze Polysporin [Bacitra* Rash, Hives Sulfa (Sulfonamide * Shortness of Breath Vancomycin Rash MEDICATIONS: Current Outpatient Medications Medication Sig lisinopril (ZESTRIL, PRINIVIL) 20 mg tablet Take 20 mg by mouth once daily. Lactobacillus acidophilus (PROBIOTIC ORAL) Take by mouth. ARIPiprazole (ABILIFY) 2 mg tablet Take 1 tablet by mouth once daily. levothyroxine (SYNTHROID) 112 mcg tablet Take 1 tablet by mouth once daily. venlafaxine (EFFEXOR) 37.5 mg tablet Take 37.5 mg by mouth once daily. Calcium Carbonate-Vitamin D3 180-5,000 mg-unit tab Take by mouth. rivaroxaban (XARELTO) 20 mg tablet Take 1 tablet by mouth daily with dinner. No current facility-administered medications for this visit. REVIEW OF SYSTEMS: Review of Systems Constitutional: Negative for chills and fatigue. HENT: Negative for mouth sores and trouble swallowing. Eyes: Negative for eye problems and icterus. Respiratory: Negative for chest tightness, cough, hemoptysis and shortness of breath. Cardiovascular: Negative for chest pain and palpitations. Gastrointestinal: Negative for abdominal distention and blood in stool. Endocrine: Negative for hot flashes. Genitourinary: Negative for difficulty urinating and hematuria. Musculoskeletal: Negative for back pain, gait problem and neck pain. Skin: Negative for itching, rash and wound. Neurological: Negative for gait problem and light-headedness. Hematological: Negative for adenopathy. Bruises/bleeds easily. Psychiatric/Behavioral: Negative for decreased concentration and depression. PHYSICAL EXAMINATION: VITALS: BP 105/66 Pulse 80 Temp (Src) 96.6 (Temporal) Wt 249 lb 3.2 oz (113.0kg) SpO2 95% Physical Exam Vitals and nursing note reviewed. Constitutional: General: She is not in acute distress. Appearance: She is not toxic-appearing or diaphoretic. HENT: Head: Normocephalic and atraumatic. Eyes: General: No scleral icterus. Cardiovascular: Rate and Rhythm: Normal rate and regular rhythm. Heart sounds: Normal heart sounds. No murmur heard. Pulmonary: Effort: Pulmonary effort is normal. No respiratory distress. Breath sounds: Normal breath sounds. Abdominal: General: There is no distension. Musculoskeletal: General: No swelling. Cervical back: Neck supple. Skin: Coloration: Skin is not pale. Neurological: Mental Status: She is alert. Mental status is at baseline. Psychiatric: Mood and Affect: Mood normal. Behavior: Behavior normal. Thought Content: Thought content normal. Judgment: Judgment normal. LABS: 1. WBC Date Value Ref Range Status 07/03/2022 6.60 3.70 - 11.00 k/uL Final RBC Date Value Ref Range Status 07/03/2022 4.89 3.90 - 5.20 m/uL Final Hemoglobin Date Value Ref Range Status 07/03/2022 14.5 11.5 - 15.5 g/dL Final Hematocrit Date Value Ref Range Status 07/03/2022 44.6 36.0 - 46.0 % Final MCV Date Value Ref Range Status 07/03/2022 91.2 80.0 - 100.0 fL Final MCH Date Value Ref Range Status 07/03/2022 29.7 26.0 - 34.0 pg Final MCHC Date Value Ref Range Status 07/03/2022 32.5 30.5 - 36.0 g/dL Final RDW-CV Date Value Ref Range Status 07/03/2022 14.3 11.5 - 15.0 % Final Platelet Count Date Value Ref Range Status 07/03/2022 250 150 - 400 k/uL Final MPV Date Value Ref Range Status 07/03/2022 10.0 9.0 - 12.7 fL Final Abs Neut Date Value Ref Range Status 07/03/2022 3.15 1.45 - 7.50 k/uL Final Lymphocytes % Date Value Ref Range Status 07/03/2022 41.7 % Final Abs Lymph Date Value Ref Range Status 07/03/2022 2.75 1.00 - 4.00 k/uL Final Monocytes % Date Value Ref Range Status 07/03/2022 7.9 % Final Abs Woodruff Date Value Ref Range Status 07/03/2022 0.52 <0.87 k/uL Final Eosinophils % Date Value Ref Range Status 07/03/2022 2.0 % Final Abs Eosin Date Value Ref Range Status 07/03/2022 0.13 <0.46 k/uL Final Basophils % Date Value Ref Range Status 07/03/2022 0.6 % Final Abs Baso Date Value Ref Range Status 07/03/2022 0.04 <0.11 k/uL Final 2. Glucose (mg/dL) Date Value 07/03/2022 121 03/05/2021 98 Potassium (mmol/L) Date Value 07/03/2022 4.1 03/05/2021 4.6 Sodium (mmol/L) Date Value 07/03/2022 140 03/05/2021 136 Chloride (mmol/L) Date Value 07/03/2022 104 03/05/2021 100 CO2 (mmol/L) Date Value 07/03/2022 25 03/05/2021 24 Creatinine (mg/dL) Date Value 07/03/2022 0.60 03/05/2021 0.66 BUN (mg/dL) Date Value 07/03/2022 12 03/05/2021 15 Anion Gap (mmol/L) Date Value 07/03/2022 11 03/05/2021 12 Calcium (mg/dL) Date Value 03/05/2021 9.4 Calcium, Total (mg/dL) Date Value 07/03/2022 9.4 Protein, Total (g/dL) Date Value 07/03/2022 7.2 03/05/2021 6.7 Albumin (g/dL) Date Value 07/03/2022 4.0 03/05/2021 4.1 Bilirubin, Total (mg/dL) Date Value 07/03/2022 0.4 03/05/2021 0.4 Alkaline Phosphatase (U/L) Date Value 07/03/2022 136 03/05/2021 90 AST (U/L) Date Value 07/03/2022 51 03/05/2021 32 ALT (U/L) Date Value 07/03/2022 49 03/05/2021 38 Lili Ojeda MD Cc: Alexander Barraza APRN.SPIRAL GEAR GENERATOR Chase Paz MD documented in this encounter [facility] 07-12-2022 Miscellaneous Notes Paperwork received 07/12/22, signed and faxed back to [facility] today. Patient called and said that she needs a signed paper from , and it needs to be sent to [facility], Dr. Ricketts. Fax number [phone] documented in this encounter [facility] 10-25-2021 Note HNO ID: [id number] Author: Megan Unger Service: ? Author Type: ? 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 N/A Reason for Outreach Care Gap or Scheduling/Wellness visits Payer: Payor: [employer] MEDICARE / Plan: [employer] MEDICARE PPO / Product Type: PPO / Care Gap Reviewed:: Annual Wellness visit Breast Cancer screening Colorectal Cancer Screening Reminder: Reminder note to check Health Maintenance for items below Health Maintenance items due: COVID-19 VACCINE(1) Never done ANNUAL PCP TEAM CHRONIC DISEASE VISIT Never done COLORECTAL CANCER SCREENING Never done SHINGRIX VACCINE(1 of 2) Never done LIPID SCREEN due on 02/17/2018 MAMMOGRAM due on 10/27/2018 BONE DENSITY Never done PNEUMOCOCCAL: 65+(1 - PCV) Never done ADVANCE DIRECTIVE DISCUSSION Never done Message Sent to Practice: No Navigation Signature: Megan Unger October 25, 2021 5:15 PM [facility] 10-25-2021 History of Presen t illness Narrative POPULATION HEALTH NAVIGATION OUTREACH Action/JV corado Patient due for the following: Annual exam Confirm pcp Mammogram - ordered on 12/28/2020 Advance Directives Colorectal Cancer Screening Unable to contact patient by phone, full Mychart message sent Pt identified by name and : NO Outreach Outcome/Action Unable to reach patient: Phone number not valid / voicemail full MyChart message sent Did you use a PCP flex slot to schedule this appointment? N/A Reason for Outreach Care Gap or Scheduling/Wellness visits Payer: Payor: [employer] MEDICARE / Plan: [employer] MEDICARE PPO / Product Type: PPO / Care Gap Reviewed:: Annual Wellness visit Breast Cancer screening Colorectal Cancer Screening Reminder: Reminder note to check Health Maintenance for items below Health Maintenance items due: COVID-19 VACCINE(1) Never done ANNUAL PCP TEAM CHRONIC DISEASE VISIT Never done COLORECTAL CANCER SCREENING Never done SHINGRIX VACCINE(1 of 2) Never done LIPID SCREEN due on 02/17/2018 MAMMOGRAM due on 10/27/2018 BONE DENSITY Never done PNEUMOCOCCAL: 65+(1 - PCV) Never done ADVANCE DIRECTIVE DISCUSSION Never done Message Sent to Practice: No Navigation Signature: Megan Unger October 25, 2021 5:15 PM documented in this encounter [facility] 10-25-[address] Ojeda has responded to pt Angelika Zayas, RN documented in this encounter [facility] 10-25-2021 Note Patient Outreach (ANDRE TNROSALINE) POPPY CARRERA ([id number]) 1955 [facility] Date Time Provider Department 10/25/21 MEGAN UNGER During your visit today, we recorded the following information about you: Megan Unger 10/25/2021 5:19 PM Signed POPULATION HEALTH NAVIGATION OUTREACH Action/JV corado Patient due for the following: Annual exam Confirm pcp Mammogram - ordered on 12/28/2020 Advance Directives Colorectal Cancer Screening Unable to contact patient by phone, full [employer] message sent Pt identified by name and : NO Outreach Outcome/Action Unable to reach patient: Phone number not valid / voicemail full [employer] message sent Did you use a PCP flex slot to schedule this appointment? N/A Reason for Outreach Care Gap or Scheduling/Wellness visits Payer: Payor: [employer] MEDICARE / Plan: [employer] MEDICARE PPO / Product Type: PPO / Care Gap Reviewed:: Annual Wellness visit Breast Cancer screening Colorectal Cancer Screening Reminder: Reminder note to check Health Maintenance for items below Health Maintenance items due: COVID-19 VACCINE(1) Never done ANNUAL PCP TEAM CHRONIC DISEASE VISIT Never done COLORECTAL CANCER SCREENING Never done SHINGRIX VACCINE(1 of 2) Never done LIPID SCREEN due on 02/17/2018 MAMMOGRAM due on 10/27/2018 BONE DENSITY Never done PNEUMOCOCCAL: 65+(1 - PCV) Never done ADVANCE DIRECTIVE DISCUSSION Never done Message Sent to Practice: No Navigation Signature: Megan Loi Chen October 25, 2021 5:15 PM Allergies As of Date: 10/25/2021 Noted Allergy Reaction GANTRISIN 12/13/2015 3 - Cough 14 - Other: See Comments Comments: wheeze POLYSPORIN (BACITRACIN-POLYMYXIN *12/13/2015 2 - Rash 4 - Hives SULFA (SULFONAMIDE ANTIBIOTICS) 09/12/2011 12 - Shortness of Breath VANCOMYCIN 11/03/2020 2 - Rash Date Reviewed: 09/04/2021 Reviewed by: Lili Ojeda MD - Fully Assessed Reason for Visit: Population Health Navigation Outreach [3910] Cmt: [employer] Medicare Prescriptions as of 10/25/2021 - rivaroxaban (XARELTO) 20 mg tablet Take 1 tablet by mouth daily with food. - ALPRAZolam (XANAX) 0.25 mg tablet Take 1 tablet by mouth at bedtime as needed for anxiety for up to 180 days. - predniSONE (DELTASONE) 20 mg tablet Take 40 mg by mouth daily with food. - amoxicillin-clavulanic acid (AUGMENTIN) 875-125 mg per tablet Take 1 tablet by mouth twice daily. - ibuprofen (MOTRIN) 800 mg tablet Take 1 tablet by mouth every 8 hours as needed for pain (for pain.). - lisinopril (ZESTRIL, PRINIVIL) 20 mg tablet Take 20 mg by mouth once daily. - Lactobacillus acidophilus (PROBIOTIC ORAL) Take by mouth. - ARIPiprazole (ABILIFY) 2 mg tablet Take 1 tablet by mouth once daily. - FLUoxetine (PROZAC) 20 mg capsule Take 1 capsule by mouth once daily. - levothyroxine (SYNTHROID) 112 mcg tablet Take 1 tablet by mouth once daily. - venlafaxine (EFFEXOR) 37.5 mg tablet Take 37.5 mg by mouth once daily. - Calcium Carbonate-Vitamin D3 (VITAMIN D-3) 180-5,000 mg-unit Tab Take by mouth. Problem List As Of Date 10/25/2021 Noted Resolved Hematoma of groin [S30.1XXA] 09/13/2011 03/28/2015 Anemia [D64.9] 09/13/2011 01/04/2013 Hamstring tear [S76.319A] 01/13/2012 03/28/2015 Abnormality of gait [R26.9] 02/03/2012 03/20/2021 Weakness [R53.1] 02/03/2012 01/04/2013 Right thigh pain [M79.651] 02/03/2012 01/04/2013 Raynaud disease [I73.00] 09/12/2011 Thyroid disease [E07.9] Hypertension [I10] Depression [F32.A] 12/28/2020 Back pain [M54.9] Vitamin D deficiency [E55.9] 02/17/2013 Chronic meniscal tear of knee [M23.209] 02/21/2014 03/28/2015 Degenerative arthritis of knee [M17.10] 02/21/2014 Lateral meniscal tear [S83.289A] 05/06/2014 03/28/2015 Depression (emotion) [F32.A] 03/28/2015 12/28/2020 Plantar fasciitis of right foot [M72.2] 05/26/2015 Hypercholesterolemia [E78.00] 03/02/2020 Obesity, Class II, BMI 35-39.9 [E66.9] 03/13/2020 Orthopedic aftercare [Z47.89] 03/14/2020 08/11/2020 S/P right knee arthroscopy [Z98.890] 03/14/2020 Primary osteoarthritis of left knee [M17.12] 08/02/2020 08/02/2020 Status post total left knee replacement [Z96.65*08/02/2020 Acute cholecystitis [K81.0] 09/05/2020 Necrotizing pancreatitis [K85.91] 10/18/2020 Hypokalemia [E87.6] 10/23/2020 10/28/2020 Malnutrition of mild degree (HCC) [E44.1] 10/24/2020 NANDV (nausea and vomiting) [R11.2] 11/03/2020 Acute thrombosis of splenic vein [I82.890] 11/11/2020 Obesity, Class I, BMI 30-34.9 [E66.9] 11/11/2020 12/28/2020 Anxiety and depression [F41.9, F32.A] Chronic pain of left knee [M25.562, G89.29] 01/04/2021 03/20/2021 Weakness of left lower extremity [R29.898] 01/04/2021 03/20/2021 Obesity, Class III, BMI >= 40 [E66.01] 05/18/2021 Encounter Status:Closed by MEGAN UNGER on 10/25/21 [facility] 10-23-2021 Miscellaneous Notes You are scheduled for a CT guided liver biopsy, On 11/12/2021. You are scheduled for 9:00 am and Report to [facility]: Ambulatory surgery waiting area on first floor. You will receive a call the day prior for time of arrival. You can expect to be here for 4-8 hours. Diet: Do not eat or drink after midnight the day of/night before your procedure. Medications: Ok to take your cardiac, blood pressure, anti-seizure, and chronic pain medications with a sip of water, please take prior to arrival. Bring your current medication list. RADIOLOGY RECOMMENDS THESE MEDICATION RESTRICTIONS: Are you taking any of following medications? Xerelto. IFok with your Prescribing Provider: Stop Xarelto 48 Hours prior to this procedure. Labs: Lab-work needs to be drawn? Yes, labs need to be drawn at least one day prior to procedure. Please bring a copy of the results if they are not done at a [facility] facility. . Bench Scientist/Transportation: How will you be arriving for your procedure? Private car. You will need a responsible adult to accompany you to and from the procedure. documented in this encounter [facility] 10-17-2021 History of Presen t illness Narrative Radiology Service Progress Note DATE OF SERVICE: October 17, 2021 TIME: 7:56 AM PATIENT IDENTITY VERIFICATION COMPLETED USING TWO (2) STANDARD IDENTIFIERS: Name and Date of confirmed by patient verbally and Name and Date of confirmed by identification band. FALL SCREENING: Has the patient had 2 falls in the last year or 1 fall with injury or currently using an Ambulatory Assistive Device (Walker, Cane, Wheelchair, Crutches, etc.)? No PATIENT GENDER DATA: Female. status: : No status: NO. PATIENT RELEVANT IMPLANT DATA REVIEWED: Yes ALLERGIES: Reviewed and unchanged CONTRAST ALLERGY: NO. EXAM: MRI - CONTRAST TYPE: GROUP II PERIPHERAL IV DATA: Ambulatory: A peripheral IV was started in the Left antecubital site with a Angio cath: 22 gauge. RADIOLOGY DEPARTMENT: MR; Exam(s) Completed: Body: Pancreas/Biliary SIGNATURE: RT Juan(R) PATIENT NAME: Poppy Grullonlip DATE: October 17, 2021 TIME: 7:56 AM documented in this encounter [facility] 09-05-2021 Miscellaneous Notes I spoke with patient. Patient reports pain in abdomen. She has discoloration at [facility], time of CT abdomen scan in July. Plan for quick abdominal exam today in [place] at 12:10-12:30. She declined consideration for ER visit or CT scan today. Lili Ojeda MD September 05, 2021 11:18 AM Called pt, she sent a My Chart message to discuss bruising on abdomen, as well as request for appointment. Pt states that she has had this area of bruising or discoloration on abdomen for approximately 4 months. It is located in upper center abdomen just below breast area. She does not remember bruising or hurting area. Area has not gotten bigger or smaller in the past 4 months. She states that she showed this to Dr Paz 4 months ago and he felt it was not anything to be concerned about. She states that it occurred after pancreatitis. Wanted to make sure there would be no problem with this kind of bruising or discoloration and being on a blood thinner documented in this encounter [facility] 09-04-2021 History of Presen t illness Narrative Referring physician: Christiano Lloyd DO Presenting complaint: Patient Poppy Carrera returns for follow-up on splenic vein thrombosis and anticoagulation. 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 Patient was discharged on 11/14/2020 on full dose Lovenox. Patient was transitioned to xarelto 20 mg daily on 2020. Plan: CT abdomen and pelvis with contrast on 08/05/2021 showed persistent splenic vein thrombosis with varices, hepatomegaly with diffuse fatty change, hypoattenuating enhancing right hepatic lobe lesion measuring before about 1.8 cm x 1.6 cm but somewhat smaller on current imaging. Continue chronic anticoagulation with Xarelto (F41.1) Anxiety neurosis Comment: nervousness with pancreatitis, thrombosis, scans reports Plan: ALPRAZolam (XANAX) 0.25 mg tablet daily PRN anxiety (K76.9) Liver lesion Comment: CT abdomen and pelvis with contrast on 03/05/2021 showed resolved peripancreatic inflammation, persistent splenic vein thrombosis with varices, hepatomegaly with diffuse fatty change, enhancing right hepatic lobe lesion measuring 1.8 cm x 1.6 cm. Plan: CT abdomen and pelvis with contrast on 08/05/2021 showed persistent splenic vein thrombosis with varices, hepatomegaly with diffuse fatty change, hypoattenuating enhancing right hepatic lobe lesion measuring before about 1.8 cm x 1.6 cm but somewhat smaller on current imaging. (R93.89) Abnormal finding present on diagnostic imaging of uterus Comment: CT abdomen and pelvis on 11/30/2020 showed improvement in pancreatitis but prominence of the endometrial complex heterogeneity of the uterus was noted. US pelvis on 12/21/2020 showed endometrial strip 3 mm, pelvic exam was unremarkable by Dr. Morelia Jeromy, there was cervical polyp <7 mm. 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 High complexity decision making/ counseling/ care I spent 20 minutes in the visit, with more than 50% of the total [id number] time of the visit in counseling / coordination of care. 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 Patient was discharged on 11/14/2020 on full dose Lovenox. The patient's administered Lovenox. atient was transitioned to xarelto 20 mg daily on 2020. CT abdomen and pelvis on 11/30/2020 showed improvement in pancreatitis but prominence of the endometrial complex heterogeneity of the uterus was noted. US pelvis on 12/21/2020 showed endometrial strip 3 mm, pelvic exam was unremarkable by Dr. Morelia Pinzon, there was cervical polyp <[address] abdomen and pelvis with contrast on 03/05/2021 showed resolved peripancreatic inflammation, persistent splenic vein thrombosis with varices, hepatomegaly with diffuse fatty change, enhancing right hepatic lobe lesion measuring 1.8 cm x 1.[address] abdomen and pelvis with contrast on 08/05/2021 showed persistent splenic vein thrombosis with varices, hepatomegaly with diffuse fatty change, hypoattenuating enhancing right hepatic lobe lesion measuring before about 1.8 cm x 1.6 cm but somewhat smaller on current imaging. She agrees to continue anticoagulation with Xarelto. PAST MEDICAL HISTORY Diagnosis Date Anemia Anxiety and depression with anxiety Attention deficit hyperactivity disorder Back pain herniated discs, pain management Bronchitis Candidiasis Chronic meniscal tear of knee 02/21/[address] Stroud- pain managment- not since ~2018 Hamstring tear 2011 right/ had hematoma/ abscess /sepsis History of acute pancreatitis 2020 after LS alexis Hypertension Hypokalemia Menopause Osteoarthritis of knees, bilateral Raynaud disease 09/12/2011 purple toes/ sometimes a couple of fingers Subcutaneous hematoma 2012 R thigh s/p hamstring tear infected s/p drain Thyroid disease hypothyroid PAST SURGICAL HISTORY Procedure Laterality Date ARTHROSCOPY KNEE DIAGNOSTIC W/WO SYNOVIAL BX SPX 03/31/2014 Arthroscopy, knee left ARTHRP KNE CONDYLE&PLATU MEDIAL&LAT COMPARTMENTS Right 2019 COLONOSCOPY DILATION & CURETTAGE 1990 bleeding KNEE ARTHROSCOP MENISCUS REPAIR MED/LAT Left 2016 LAPAROSCOPY SURG CHOLECYSTECTOMY 08/2020 PAST SURGICAL HISTORY OF picc line and drain tubes for hamstring infection TOTAL KNEE REPLACEMENT Left 07/2020 FAMILY HISTORY Problem Relation Age of Onset Coronary Artery Disease Mother 58 1VCABG Accidental Mother 83 fell & had brain bleed, age ~83 Diabetes Father Lymphoma Father age ~74 Systemic Lupus Erythematosus Sister No Known Problems Sister Cancer Paternal cousin ?maybe breast Cervical Cancer No Family History Ovarian cancer No Family History Uterine Cancer No Family History Colon Cancer No Family History Pancreatic Cancer No Family History Prostate Cancer No Family History SOCIAL HISTORY Social History Tobacco Use Smoking status: Former Smoker Quit date: 05/26/1981 Years since quittin.3 Smokeless tobacco: Never Used Vaping Use Vaping Use: Never used Substance Use Topics Alcohol use: No Drug use: No Comment: no reported history ALLERGIES: ALLERGIES Allergen Reactions Gantrisin Cough, Other: See Comments wheeze Polysporin [Bacitra* Rash, Hives Sulfa (Sulfonamide * Shortness of Breath Vancomycin Rash MEDICATIONS: Current Outpatient Medications Medication Sig rivaroxaban (XARELTO) 20 mg tablet Take 1 tablet by mouth daily with food. predniSONE (DELTASONE) 20 mg tablet Take 40 mg by mouth daily with food. amoxicillin-clavulanic acid (AUGMENTIN) 875-125 mg per tablet Take 1 tablet by mouth twice daily. ibuprofen (MOTRIN) 800 mg tablet Take 1 tablet by mouth every 8 hours as needed for pain (for pain.). lisinopril (ZESTRIL, PRINIVIL) 20 mg tablet Take 20 mg by mouth once daily. Lactobacillus acidophilus (PROBIOTIC ORAL) Take by mouth. ARIPiprazole (ABILIFY) 2 mg tablet Take 1 tablet by mouth once daily. FLUoxetine (PROZAC) 20 mg capsule Take 1 capsule by mouth once daily. levothyroxine (SYNTHROID) 112 mcg tablet Take 1 tablet by mouth once daily. venlafaxine (EFFEXOR) 37.5 mg tablet Take 37.5 mg by mouth once daily. Calcium Carbonate-Vitamin D3 (VITAMIN D-3) 180-5,000 mg-unit Tab Take by mouth. ALPRAZolam (XANAX) 0.25 mg tablet Take 1 tablet by mouth at bedtime as needed for anxiety for up to 180 days. No current facility-administered medications for this visit. REVIEW OF SYSTEMS: Review of Systems Constitutional: Negative for chills and fatigue. HENT: Negative for mouth sores and trouble swallowing. Eyes: Negative for eye problems and icterus. Respiratory: Negative for chest tightness, cough, hemoptysis and shortness of breath. Cardiovascular: Negative for chest pain and palpitations. Gastrointestinal: Positive for abdominal pain. Negative for blood in stool. Abdominal cramping Endocrine: Negative for hot flashes. Genitourinary: Negative for difficulty urinating and hematuria. Musculoskeletal: Negative for back pain, gait problem and neck pain. Skin: Negative for itching, rash and wound. Neurological: Negative for gait problem and light-headedness. Hematological: Negative for adenopathy. Bruises/bleeds easily. Psychiatric/Behavioral: Negative for decreased concentration and depression. PHYSICAL EXAMINATION: VITALS: BP 127/77 Pulse 88 Temp (Src) 97 (Temporal) Wt 234 lb 1.6 oz (106.2kg) SpO2 97% Physical Exam Vitals and nursing note reviewed. Constitutional: General: She is not in acute distress. Appearance: She is not toxic-appearing or diaphoretic. HENT: Head: Normocephalic and atraumatic. Nose: No congestion. Eyes: General: No scleral icterus. Cardiovascular: Rate and Rhythm: Normal rate. Heart sounds: No murmur heard. Pulmonary: Effort: Pulmonary effort is normal. No respiratory distress. Abdominal: General: Abdomen is flat. There is no distension. Palpations: Abdomen is soft. Tenderness: There is no abdominal tenderness. There is no guarding or rebound. Musculoskeletal: General: No swelling. Cervical back: Neck supple. Skin: General: Skin is warm and dry. Coloration: Skin is not jaundiced or pale. Comments: Chronic brownish discoloration of abdoman Neurological: Mental Status: She is alert. Mental status is at baseline. Psychiatric: Mood and Affect: Mood normal. Behavior: Behavior normal. Thought Content: Thought content normal. Judgment: Judgment normal. LABS: 1. WBC Date Value Ref Range Status 09/04/2021 4.95 3.70 - 11.00 k/uL Final RBC Date Value Ref Range Status 09/04/2021 4.98 3.90 - 5.20 m/uL Final Hemoglobin Date Value Ref Range Status 09/04/2021 15.1 11.5 - 15.5 g/dL Final Hematocrit Date Value Ref Range Status 09/04/2021 45.9 36.0 - 46.0 % Final MCV Date Value Ref Range Status 09/04/2021 92.2 80.0 - 100.0 fL Final MCH Date Value Ref Range Status 09/04/2021 30.3 26.0 - 34.0 pg Final MCHC Date Value Ref Range Status 09/04/2021 32.9 30.5 - 36.0 g/dL Final RDW-CV Date Value Ref Range Status 09/04/2021 12.7 11.5 - 15.0 % Final Platelet Count Date Value Ref Range Status 09/04/2021 179 150 - 400 k/uL Final MPV Date Value Ref Range Status 09/04/2021 9.6 9.0 - 12.7 fL Final Abs Neut Date Value Ref Range Status 09/04/2021 2.22 1.45 - 7.50 k/uL Final Lymph% Date Value Ref Range Status 09/04/2021 41.8 % Final Abs Lymph Date Value Ref Range Status 09/04/2021 2.07 1.00 - 4.00 k/uL Final Woodruff% Date Value Ref Range Status 09/04/2021 9.3 % Final Abs Woodruff Date Value Ref Range Status 09/04/2021 0.46 <0.87 k/uL Final Eosin% Date Value Ref Range Status 09/04/2021 3.2 % Final Abs Eosin Date Value Ref Range Status 09/04/2021 0.16 <0.46 k/uL Final Baso% Date Value Ref Range Status 09/04/2021 0.6 % Final Abs Baso Date Value Ref Range Status 09/04/2021 0.03 <0.11 k/uL Final 2. Glucose (mg/dL) Date Value 09/04/2021 123 03/05/2021 98 Potassium (mmol/L) Date Value 09/04/2021 4.2 03/05/2021 4.6 Sodium (mmol/L) Date Value 09/04/2021 139 03/05/2021 136 Chloride (mmol/L) Date Value 09/04/2021 103 03/05/2021 100 CO2 (mmol/L) Date Value 09/04/2021 23 03/05/2021 24 Creatinine (mg/dL) Date Value 09/04/2021 0.61 03/05/2021 0.66 BUN (mg/dL) Date Value 09/04/2021 11 03/05/2021 15 Anion Gap (mmol/L) Date Value 09/04/2021 13 03/05/2021 12 Calcium (mg/dL) Date Value 03/05/2021 9.4 Calcium, Total (mg/dL) Date Value 09/04/2021 9.3 Protein, Total (g/dL) Date Value 09/04/2021 6.9 03/05/2021 6.7 Albumin (g/dL) Date Value 09/04/2021 4.2 03/05/2021 4.1 Bilirubin, Total (mg/dL) Date Value 09/04/2021 0.4 03/05/2021 0.4 Alkaline Phosphatase (U/L) Date Value 09/04/2021 106 03/05/2021 90 AST (U/L) Date Value 09/04/2021 39 03/05/2021 32 ALT (U/L) Date Value 09/04/2021 47 03/05/2021 38 Lili Ojeda MD September 04, 2021 11:48 AM Cc: DO Majo Clayton MD Erin McKelvey, MD documented in this encounter [facility] 08-17-2021 History of Presen t illness Narrative Associated Order(s): Large Joint Arthro/Inj: R shoulder joint Images from the original note were not included. ORTHOPAEDIC SHOULDER & ELBOW SERVICE HISTORY & PHYSICAL EXAM CHIEF COMPLAINT: Right shoulder pain REFERRING PROVIDER: Alexander Barraza (Artie) [address] [facility] [address] [place] [id number] HISTORY OF PRESENT ILLNESS: Poppy Carrera is a 65-year-old woman who presents today with right shoulder pain which has been present over the past few months and growing gradually worse. She does not recall any specific injury but has done some reaching twisting of the arm which has caused it to hurt more. She has pain with overhead and rotational movement of the arm and difficulty lifting. She occasionally has difficulty with sleeping as well. She has had no treatment of the shoulder prior to today's visit. PAIN EVALUATION 08/17/2021 0929 Pain Level: 3 Pain Location: Shoulder-Right Description: Throbbing;Burning;Aching Duration Amount of Time: on going Duration Units: Months Frequency: Intermittent Intervention/Comfort measure: Medication;Cold;Reposition;Rela xation ibuprofen PAST MEDICAL HISTORY: PAST MEDICAL HISTORY Diagnosis Date Anemia Anxiety and depression with anxiety Attention deficit hyperactivity disorder Back pain herniated discs, pain management Bronchitis Candidiasis Chronic meniscal tear of knee 02/21/[address] Stroud- pain managment- not since ~2018 Hamstring tear 2011 right/ had hematoma/ abscess /sepsis History of acute pancreatitis 2020 after LS alexis Hypertension Hypokalemia Menopause Osteoarthritis of knees, bilateral Raynaud disease 09/12/2011 purple toes/ sometimes a couple of fingers Subcutaneous hematoma 2012 R thigh s/p hamstring tear infected s/p drain Thyroid disease hypothyroid PAST SURGICAL HISTORY: PAST SURGICAL HISTORY Procedure Laterality Date ARTHROSCOPY KNEE DIAGNOSTIC W/WO SYNOVIAL BX SPX 03/31/2014 Arthroscopy, knee left ARTHRP KNE CONDYLE&PLATU MEDIAL&LAT COMPARTMENTS Right 2019 COLONOSCOPY DILATION & CURETTAGE 1989 bleeding KNEE ARTHROSCOP MENISCUS REPAIR MED/LAT Left 2017 LAPAROSCOPY SURG CHOLECYSTECTOMY 08/2020 PAST SURGICAL HISTORY OF picc line and drain tubes for hamstring infection TOTAL KNEE REPLACEMENT Left 07/2020 SOCIAL HISTORY: Social History Tobacco Use Smoking status: Former Smoker Quit date: 05/26/1981 Years since quittin.2 Smokeless tobacco: Never Used Vaping Use Vaping Use: Never used Substance Use Topics Alcohol use: No Drug use: No Comment: no reported history ALLERGIES: ALLERGIES Allergen Reactions Gantrisin Cough, Other: See Comments wheeze Polysporin [Bacitra* Rash, Hives Sulfa (Sulfonamide * Shortness of Breath Vancomycin Rash MEDICATIONS: Current Outpatient Medications on File Prior to Visit Medication Sig predniSONE (DELTASONE) 20 mg tablet Take 40 mg by mouth daily with food. amoxicillin-clavulanic acid (AUGMENTIN) 875-125 mg per tablet Take 1 tablet by mouth twice daily. lisinopril (ZESTRIL, PRINIVIL) 20 mg tablet Take 20 mg by mouth once daily. Lactobacillus acidophilus (PROBIOTIC ORAL) Take by mouth. rivaroxaban (XARELTO) 20 mg tablet Take 1 tablet by mouth daily with food. ALPRAZolam (XANAX) 0.25 mg tablet Take 1 tablet by mouth once daily as needed for up to 180 days. ARIPiprazole (ABILIFY) 2 mg tablet Take 1 tablet by mouth once daily. FLUoxetine (PROZAC) 20 mg capsule Take 1 capsule by mouth once daily. levothyroxine (SYNTHROID) 112 mcg tablet Take 1 tablet by mouth once daily. venlafaxine (EFFEXOR) 37.5 mg tablet Take 37.5 mg by mouth once daily. Calcium Carbonate-Vitamin D3 (VITAMIN D-3) 180-5,000 mg-unit Tab Take by mouth. No current facility-administered medications on file prior to visit. PHYSICAL EXAMINATION: Ht 167.6 cm (5' 6 ) Wt 102.5 kg (226 lb) BMI 36.48 kg/m EXAM: Shoulder Musculoskeletal Exam General Constitutional: appears stated age Labored breathing: no Psychiatric: normal mood and affect and no acute distress Neurological: alert and oriented x3 Skin: intact Lymphadenopathy: none Inspection Inspection - Right Ecchymosis: none Peripheral edema: none Atrophy: none Deformity: none Symmetry: symmetric Masses: none Skin tenting: none Prior incision: none Palpation Palpation - Right Crepitus: mild Increased warmth: none Range of Motion Range of Motion - Right Active ROM: abnormal and pain Passive ROM: abnormal and pain Active forward elevation: 140 Passive forward elevation: 150 Shoulder active abduction: 90 Passive abduction: 90 Active external rotation at side: 60 Passive external rotation at side: 60 Active external rotation in abduction: 60 Passive external rotation in abduction: 60 Active internal rotation in abduction: 40 Passive internal rotation in abduction: 40 Internal rotation: T12 Strength Strength - Right External rotation: 5/5 Internal rotation: 5/5 Abduction: 5/5 Neurovascular Neurovascular - Right Right shoulder nerve sensation is normal. Axillary nerve sensory distribution: normal Scapula Scapula - Right Position: normal Dyskinesia: none Winging: none Special Tests Special Tests - Right Rotator Cuff Signs - Right Neer's test: positive Monk test: positive Supraspinatus: negative Belly press test: negative Painful arc test: negative Lift-off sign: negative Drop arm test: negative Biceps/magaly Signs - Right Catoosa's test: positive Clicking/popping: positive Speed's test: positive AC Joint Signs - Right Active horizontal adduction pain: negative Single finger test: negative IMAGING: Right Shoulder: Radiographic series reviewed personally in the office today There is no glenohumeral joint arthritis. The glenohumeral joint shows concentric reduction. No tumors or fractures noted. MEDICAL DECISION MAKING: Functional Plan: This is a 65-year-old woman with pain in the right shoulder likely due to degenerative rotator cuff and bicipital tendon tearing. She has no evidence of osteoarthritis radiographically. Recommended conservative treatment today. A comprehensive physical therapy program was ordered today after discussion of conservative treatment. Physical therapy would be expected to provide benefit within approximately 6 to 12 weeks of starting the program. This will likely involve both in person visits as well as a structured home program. The importance of adherence to the physical therapy program for the best possible outcome was discussed today. Pain Control: NSAIDs and Tylenol were prescribed today for relief of pain. We had a discussion about the relative risks and benefits of these medications. We discussed side effects including gastrointestinal and cardiovascular. These medications are generally not habit-forming and can be taken an an as-needed basis for pain. No long-term monitoring for side effects is available through my office and the patient was advised to seek care from their primary care physician for longer-term medical management. Large Joint Arthro/Inj: R shoulder joint 08/17/2021 9:46 AM The procedure site was prepped in the usual sterile fashion. Site: R shoulder joint Medications: 12 mg betamethasone acetate-betamethasone sodium phosphate 6 mg/mL; 30 mg ketorolac 60 mg/2 mL Anesthetics: 4 mL lidocaine (PF) 10 mg/mL (1 %) Outcome: Tolerated well, no immediate complications Post-injection instructions were reviewed with the patient and the patient voiced understanding of these instructions. Follow-up: 12 weeks or PRN Medical decision making for today's visit was conducted with review of the following data sources: History, exam, imaging REFERRING PHYSICIAN: The patient was referred to hi for consultation by the following physician. This consultation note will be sent to the following physician by either mail or electronic medical record. Alexander Barraza ([facility]) [address] [facility] [address] [facility] [id number] -- X-rays next appointment: no Gown needed: no Alvin Vásquez MD Shoulder & Elbow Surgeon Department of Orthopaedic Surgery [facility] [place] Medical Decision Making -- documented in this encounter [facility] 08-17-2021 Miscellaneous Notes Radiology Service Progress Note PATIENT NAME: Poppy Carrera DATE OF SERVICE: August 17, 2021 TIME: 8:42 AM PATIENT IDENTITY VERIFICATION COMPLETED USING TWO (2) IDENTIFIERS: Name and Date of confirmed by patient verbally. FALL SCREENING: Has the patient had 2 falls in the last year or 1 fall with injury or currently using an Ambulatory Assistive Device (Walker, Cane, Wheelchair, Crutches, etc.)? No PATIENT GENDER DATA: Female. status: : No status: NO. PATIENT RELEVANT IMPLANT DATA REVIEWED: Not Applicable RADIOLOGY DEPARTMENT: General X-ray: Exam(s) Completed: Upper Extremity X-Ray(s): Shoulder, AP / TRUE AP / SUPRA OUTLET right PERIPHERAL IV DATA: Not applicable SIGNED BY: RT Hoda(R) August 17, 2021 8:42 AM documented in this encounter [facility] documented as of this encounter (statuses as of 08/08/2021) [facility] History of Past illness Narrative* Problem Noted Date Resolved Date Chronic pain of left knee 01/04/20212020 Weakness of left lower extremity 01/04/2021 03/20/2021 Obesity, Class I, BMI 30-34.9 11/11/2020 Hypokalemia 10/23/2020 10/28/2020 Primary osteoarthritis of left knee 08/02/2020 08/02/2020 Orthopedic aftercare 03/14/2020 08/11/2020 Depression (emotion) 03/28/2015 12/28/2020 Lateral meniscal tear 05/06/2014 03/28/2015 Chronic meniscal tear of knee 02/21/2014 Abnormality of gait 02/03/2012 03/20/2021 Weakness 02/03/2012 01/04/2013 Right thigh pain 02/03/2012 01/04/2013 Hamstring tear 01/13/2012 03/28/2015 Hematoma of groin 09/13/2011 03/28/2015 Anemia 09/13/2011 01/04/2013 Depression 12/28/2020 Last Assessment & Plan: Assessment: on abilify, prozac, effexor documented as of this encounter (statuses as of 08/18/2021) [facility] History of Past illness Narrative* Problem Noted Date Resolved Date Chronic pain of left knee 01/04/20212020 Weakness of left lower extremity 01/04/2021 03/20/2021 Obesity, Class I, BMI 30-34.9 11/11/2020 Hypokalemia 10/23/2020 10/28/2020 Primary osteoarthritis of left knee 08/02/2020 08/02/2020 Orthopedic aftercare 03/14/2020 08/11/2020 Depression (emotion) 03/28/2015 12/28/2020 Lateral meniscal tear 05/06/2014 03/28/2015 Chronic meniscal tear of knee 02/21/2014 Abnormality of gait 02/03/2012 03/20/2021 Weakness 02/03/2012 01/04/2013 Right thigh pain 02/03/2012 01/04/2013 Hamstring tear 01/13/2012 03/28/2015 Hematoma of groin 09/13/2011 03/28/2015 Anemia 09/13/2011 01/04/2013 Depression 12/28/2020 Last Assessment & Plan: Assessment: on abilifymikoc, effexor documented as of this encounter (statuses as of 08/22/2021) [facility] History of Past illness Narrative* Problem Noted Date Resolved Date Chronic pain of left knee 01/04/20212020 Weakness of left lower extremity 01/04/2021 03/20/2021 Obesity, Class I, BMI 30-34.9 11/11/2020 Hypokalemia 10/23/2020 10/28/2020 Primary osteoarthritis of left knee 08/02/2020 08/02/2020 Orthopedic aftercare 03/14/2020 08/11/2020 Depression (emotion) 03/28/2015 12/28/2020 Lateral meniscal tear 05/06/2014 03/28/2015 Chronic meniscal tear of knee 02/21/2014 Abnormality of gait 02/03/2012 03/20/2021 Weakness 02/03/2012 01/04/2013 Right thigh pain 02/03/2012 01/04/2013 Hamstring tear 01/13/2012 03/28/2015 Hematoma of groin 09/13/2011 03/28/2015 Anemia 09/13/2011 01/04/2013 Depression 12/28/2020 Last Assessment & Plan: Assessment: on abilifmiko [place], effexor documented as of this encounter (statuses as of 09/05/2021) [facility] History of Past illness Narrative* Problem Noted Date Resolved Date Chronic pain of left knee 01/04/20212020 Weakness of left lower extremity 01/04/2021 03/20/2021 Obesity, Class I, BMI 30-34.9 11/11/2020 Hypokalemia 10/23/2020 10/28/2020 Primary osteoarthritis of left knee 08/02/2020 08/02/2020 Orthopedic aftercare 03/14/2020 08/11/2020 Depression (emotion) 03/28/2015 12/28/2020 Lateral meniscal tear 05/06/2014 03/28/2015 Chronic meniscal tear of knee 02/21/2014 Abnormality of gait 02/03/2012 03/20/2021 Weakness 02/03/2012 01/04/2013 Right thigh pain 02/03/2012 01/04/2013 Hamstring tear 01/13/2012 03/28/2015 Hematoma of groin 09/13/2011 03/28/2015 Anemia 09/13/2011 01/04/2013 Depression 12/28/2020 Last Assessment & Plan: Assessment: on abilify, prozac, effexor documented as of this encounter (statuses as of 09/05/2021) [facility] History of Past illness Narrative* Problem Noted Date Resolved Date Chronic pain of left knee 01/04/20212020 Weakness of left lower extremity 01/04/2021 03/20/2021 Obesity, Class I, BMI 30-34.9 11/11/2020 Hypokalemia 10/23/2020 10/28/2020 Primary osteoarthritis of left knee 08/02/2020 08/02/2020 Orthopedic aftercare 03/14/2020 08/11/2020 Depression (emotion) 03/28/2015 12/28/2020 Lateral meniscal tear 05/06/2014 03/28/2015 Chronic meniscal tear of knee 02/21/2014 Abnormality of gait 02/03/2012 03/20/2021 Weakness 02/03/2012 01/04/2013 Right thigh pain 02/03/2012 01/04/2013 Hamstring tear 01/13/2012 03/28/2015 Hematoma of groin 09/13/2011 03/28/2015 Anemia 09/13/2011 01/04/2013 Depression 12/28/2020 Last Assessment & Plan: Assessment: on abilify, prozac, effexor documented as of this encounter (statuses as of 09/10/2021) [facility] History of Past illness Narrative* Problem Noted Date Resolved Date Chronic pain of left knee 01/04/20212020 Weakness of left lower extremity 01/04/2021 03/20/2021 Obesity, Class I, BMI 30-34.9 11/11/2020 Hypokalemia 10/23/2020 10/28/2020 Primary osteoarthritis of left knee 08/02/2020 08/02/2020 Orthopedic aftercare 03/14/2020 08/11/2020 Depression (emotion) 03/28/2015 12/28/2020 Lateral meniscal tear 05/06/2014 03/28/2015 Chronic meniscal tear of knee 02/21/2014 Abnormality of gait 02/03/2012 03/20/2021 Weakness 02/03/2012 01/04/2013 Right thigh pain 02/03/2012 01/04/2013 Hamstring tear 01/13/2012 03/28/2015 Hematoma of groin 09/13/2011 03/28/2015 Anemia 09/13/2011 01/04/2013 Depression 12/28/2020 Last Assessment & Plan: Assessment: on abiliftaiwo, prozac, effexor documented as of this encounter (statuses as of 10/18/2021) [facility] History of Past illness Narrative* Problem Noted Date Resolved Date Chronic pain of left knee 01/04/20212020 Weakness of left lower extremity 01/04/2021 03/20/2021 Obesity, Class I, BMI 30-34.9 11/11/2020 Hypokalemia 10/23/2020 10/28/2020 Primary osteoarthritis of left knee 08/02/2020 08/02/2020 Orthopedic aftercare 03/14/2020 08/11/2020 Depression (emotion) 03/28/2015 12/28/2020 Lateral meniscal tear 05/06/2014 03/28/2015 Chronic meniscal tear of knee 02/21/2014 Abnormality of gait 02/03/2012 03/20/2021 Weakness 02/03/2012 01/04/2013 Right thigh pain 02/03/2012 01/04/2013 Hamstring tear 01/13/2012 03/28/2015 Hematoma of groin 09/13/2011 03/28/2015 Anemia 09/13/2011 01/04/2013 Depression 12/28/2020 Last Assessment & Plan: Assessment: on abilifymikoc, effexor documented as of this encounter (statuses as of 10/23/2021) [facility] of Past illness Narrative* Problem Noted Date Resolved Date Chronic pain of left knee 01/04/20212020 Weakness of left lower extremity 01/04/2021 03/20/2021 Obesity, Class I, BMI 30-34.9 11/11/2020 Hypokalemia 10/23/2020 10/28/2020 Primary osteoarthritis of left knee 08/02/2020 08/02/2020 Orthopedic aftercare 03/14/2020 08/11/2020 Depression (emotion) 03/28/2015 12/28/2020 Lateral meniscal tear 05/06/2014 03/28/2015 Chronic meniscal tear of knee 02/21/2014 Abnormality of gait 02/03/2012 03/20/2021 Weakness 02/03/2012 01/04/2013 Right thigh pain 02/03/2012 01/04/2013 Hamstring tear 01/13/2012 03/28/2015 Hematoma of groin 09/13/2011 03/28/2015 Anemia 09/13/2011 01/04/2013 Depression 12/28/2020 Last Assessment & Plan: Assessment: on abiaryfmiko [place], effexor documented as of this encounter (statuses as of 10/25/2021) [facility] of Past illness Narrative* Problem Noted Date Resolved Date Chronic pain of left knee 01/04/20212020 Weakness of left lower extremity 01/04/2021 03/20/2021 Obesity, Class I, BMI 30-34.9 11/11/2020 Hypokalemia 10/23/2020 10/28/2020 Primary osteoarthritis of left knee 08/02/2020 08/02/2020 Orthopedic aftercare 03/14/2020 08/11/2020 Depression (emotion) 03/28/2015 12/28/2020 Lateral meniscal tear 05/06/2014 03/28/2015 Chronic meniscal tear of knee 02/21/2014 Abnormality of gait 02/03/2012 03/20/2021 Weakness 02/03/2012 01/04/2013 Right thigh pain 02/03/2012 01/04/2013 Hamstring tear 01/13/2012 03/28/2015 Hematoma of groin 09/13/2011 03/28/2015 Anemia 09/13/2011 01/04/2013 Depression 12/28/2020 Last Assessment & Plan: Assessment: on abilify, prozac, effexor documented as of this encounter (statuses as of 10/25/2021) [facility] of Past illness Narrative* Problem Noted Date Resolved Date Chronic pain of left knee 01/04/20212020 Weakness of left lower extremity 01/04/2021 03/20/2021 Obesity, Class I, BMI 30-34.9 11/11/2020 Hypokalemia 10/23/2020 10/28/2020 Primary osteoarthritis of left knee 08/02/2020 08/02/2020 Orthopedic aftercare 03/14/2020 08/11/2020 Depression (emotion) 03/28/2015 12/28/2020 Lateral meniscal tear 05/06/2014 03/28/2015 Chronic meniscal tear of knee 02/21/2014 Abnormality of gait 02/03/2012 03/20/2021 Weakness 02/03/2012 01/04/2013 Right thigh pain 02/03/2012 01/04/2013 Hamstring tear 01/13/2012 03/28/2015 Hematoma of groin 09/13/2011 03/28/2015 Anemia 09/13/2011 01/04/2013 Depression 12/28/2020 Last Assessment & Plan: Assessment: on abilify, prozac, effexor documented as of this encounter (statuses as of 11/21/2021) [facility] of Past illness Narrative* Problem Noted Date Resolved Date Chronic pain of left knee 01/04/20212020 Weakness of left lower extremity 01/04/2021 03/20/2021 Obesity, Class I, BMI 30-34.9 11/11/2020 Hypokalemia 10/23/2020 10/28/2020 Primary osteoarthritis of left knee 08/02/2020 08/02/2020 Orthopedic aftercare 03/14/2020 08/11/2020 Depression (emotion) 03/28/2015 12/28/2020 Lateral meniscal tear 05/06/2014 03/28/2015 Chronic meniscal tear of knee 02/21/2014 Abnormality of gait 02/03/2012 03/20/2021 Weakness 02/03/2012 01/04/2013 Right thigh pain 02/03/2012 01/04/2013 Hamstring tear 01/13/2012 03/28/2015 Hematoma of groin 09/13/2011 03/28/2015 Anemia 09/13/2011 01/04/2013 Depression 12/28/2020 Last Assessment & Plan: Assessment: on abilify, prozac, effexor documented as of this encounter (statuses as of 07/12/2022) [facility] of Past illness Narrative* Problem Noted Date Resolved Date Chronic pain of left knee 01/04/20212020 Weakness of left lower extremity 01/04/2021 03/20/2021 Obesity, Class I, BMI 30-34.9 11/11/2020 Hypokalemia 10/23/2020 10/28/2020 Primary osteoarthritis of left knee 08/02/2020 08/02/2020 Orthopedic aftercare 03/14/2020 08/11/2020 Depression (emotion) 03/28/2015 12/28/2020 Lateral meniscal tear 05/06/2014 03/28/2015 Chronic meniscal tear of knee 02/21/2014 Abnormality of gait 02/03/2012 03/20/2021 Weakness 02/03/2012 01/04/2013 Right thigh pain 02/03/2012 01/04/2013 Hamstring tear 01/13/2012 03/28/2015 Hematoma of groin 09/13/2011 03/28/2015 Anemia 09/13/2011 01/04/2013 Depression 12/28/2020 Last Assessment & Plan: Assessment: on maxim moreland ronel documented as of this encounter (statuses as of 10/10/2022) [facility] note* Diagnosis Chronic right shoulder pain- Primary Pain in joint, shoulder region [facility] Diagnosis Right shoulder pain, unspecified chronicity- Primary [facility] Diagnosis 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, unspecified Liver lesion Other specified disorders of liver Abnormal finding present on diagnostic imaging of uterus documented in this encounter [facility] note* Diagnosis Abdominal distention- Primary Flatulence, eructation, and gas pain Abnormal levels of other serum enzymes Abdominal distention Flatulence, eructation, and gas pain Abnormal levels of other serum enzymes Right upper quadrant pain Abdominal pain, right upper quadrant documented in this encounter [facility] Diagnosis Anxiety neurosis- Primary Anxiety state, unspecified Acute thrombosis of splenic vein documented in this encounter [facility] Diagnosis Acute thrombosis of splenic vein- Primary Liver lesion Other specified disorders of liver documented in this encounter [facility] for referral (narrative)* Diagnostic Procedure Only (Routine) - Authorized Specialty Diagnoses / Procedures Referred By Юлия rogesr Referred To Contact XR IMAGING Diagnoses Chronic right shoulder pain Procedures XR SHOULDER GENERAL 3V OR MORE AP/TRUE AP/OTHER RIGHT RADEX SHOULDER COMPLETE MINIMUM 2 VIEWS Alvin Vásquez MD [address] [facility] [facility] [address] [place] [address] Xr Imaging Referral ID Status Reason Start Date Expiration Date Visits Requested Visits Authorized [id number] Authorized Auto-Generat ed Referral 08/08/2021 09/06/2022 1 1 [facility] for referral (narrative)* - Pending Review Specialty Diagnoses / Procedures Referred By Contreta t Referred To Contact Physical Therapy Diagnoses Right shoulder pain, unspecified chronicity Procedures CONSULT TO PHYSICAL THERAPY Alvin Vásquez MD [address] [place] [address] Referral ID Status Reason Start Date Expiration Date V isits Requested Visits Authorized [id number] Pending Review 08/17/2021 11/15/2021 1 1 [facility] for visit Narrative* Diagnostic Procedure Only (Routine) - Closed Specialty Diagnoses / Procedures Referred By Contac t Referred To Contact XR IMAGING Diagnoses Chronic right shoulder pain Procedures XR SHOULDER GENERAL 3V OR MORE AP/TRUE AP/OTHER RIGHT RADEX SHOULDER COMPLETE MINIMUM 2 VIEWS Alvin Vásquez MD [address] [facility] [place] [address] Xr Imaging Referral ID Status Reason Start Date Expiration Date V isits Requested Visits Authorized [id number] Closed Auto-Generate d Referral 08/08/2021 09/06/2022 1 1 [facility] for visit Narrative* Diagnostic Procedure Only (Routine) - Closed Specialty Diagnoses / Procedures Referred By Contac t Referred To Contact Radiology / RADIO [facility] Diagnoses RUQ PAINMRI WITH MRCP OF ABDOMEN DX:R 74.8 ABNORMAL LEVELS OF OTHER SERUM ENZYMES . ROUTINEDX: R10.11 RIGHT UPPER QUADRANT PAIN DOCTOR CHASE PAZ M.D. UPIN [id number] Procedures MRI MRCP 300 Chase Paz MD [facility] [address] [place] [address] Radio Mri [facility] [address] [place] [address] Referral ID Status Reason Start Date Expiration Date Visits Re quested Visits Authorized [id number] Closed 10/16/2021 11/15/2021 1 1 [facility] Summary Purpose Family History No Family History Records FoundNo Family History Records FoundNo Family History Records FoundNo Family History Records Found Advance Directives No Advanced Directives Records FoundDocuments on File Type Date Recorded Patient Route Relief Driver Expl anation Advance Directive(s) 08/05/2021 10:06 AM Advance Directive(s) 11/15/2020 3:56 PM Advance Directive(s) 11/03/2020 7:23 PM Advance Directive(s) 10/18/2020 6:20 AM Advance Directive(s) 09/05/2020 5:32 PM Advance Directive(s) 08/02/2020 10:02 PM Advance Directive(s) 07/31/2020 11:52 AM Advance Directive(s) 07/14/2020 1:19 PM Advance Directive(s) 03/15/2020 2:18 AM Advance Directive(s) 03/13/2020 8:57 AM Advance Directive(s) 03/07/2020 9:50 AM Advance Directive(s) 07/06/2018 9:56 AM Documents on File Type Date Recorded Patient Route Relief Driver Expl anation Advance Directive(s) 08/05/2021 10:06 AM Advance Directive(s) 11/15/2020 3:56 PM Advance Directive(s) 11/03/2020 7:23 PM Advance Directive(s) 10/18/2020 6:20 AM Advance Directive(s) 09/05/2020 5:32 PM Advance Directive(s) 08/02/2020 10:02 PM Advance Directive(s) 07/31/2020 11:52 AM Advance Directive(s) 07/14/2020 1:19 PM Advance Directive(s) 03/15/2020 2:18 AM Advance Directive(s) 03/13/2020 8:57 AM Advance Directive(s) 03/07/2020 9:50 AM Advance Directive(s) 07/06/2018 9:56 AM Documents on File Type Date Recorded Patient Route Relief Driver Expl anation Advance Directive(s) 10/25/2021 4:21 PM Advance Directive(s) 08/05/2021 10:06 AM Advance Directive(s) 11/15/2020 3:56 PM Advance Directive(s) 11/03/2020 7:23 PM Advance Directive(s) 10/18/2020 6:20 AM Advance Directive(s) 09/05/2020 5:32 PM Advance Directive(s) 08/02/2020 10:02 PM Advance Directive(s) 07/31/2020 11:52 AM Advance Directive(s) 07/14/2020 1:19 PM Advance Directive(s) 03/15/2020 2:18 AM Advance Directive(s) 03/13/2020 8:57 AM Advance Directive(s) 03/07/2020 9:50 AM Advance Directive(s) 07/06/2018 9:56 AM Documents on File Type Date Recorded Patient Route Relief Driver Expl anation Advance Directive(s) 11/12/2021 7:46 AM Advance Directive(s) 10/25/2021 4:21 PM Advance Directive(s) 08/05/2021 10:06 AM Advance Directive(s) 11/15/2020 3:56 PM Advance Directive(s) 11/03/2020 7:23 PM Advance Directive(s) 10/18/2020 6:20 AM Advance Directive(s) 09/05/2020 5:32 PM Advance Directive(s) 08/02/2020 10:02 PM Advance Directive(s) 07/31/2020 11:52 AM Advance Directive(s) 07/14/2020 1:19 PM Advance Directive(s) 03/15/2020 2:18 AM Advance Directive(s) 03/13/2020 8:57 AM Advance Directive(s) 03/07/2020 9:50 AM Advance Directive(s) 07/06/2018 9:56 AM Medications Administered Section Inactive Administered Medications - up to 3 most recent administrations Medication Order MAR Action Action Date Dose Rate Site betamethasone acetate-betamethasone sodium phosphate 12 mg injection (CELESTONE) 12 mg, Injection - FOR ORTHO USE ONLY, ONE TIME INJECTION, 1 dose, Starting on Fri08/17/21 at 0946, Until Fri08/17/21 at 0946 Given 08/17/2021 9:46 AM EDT 12 mg keTORolac 30 mg injection (TORADOL) 30 mg, Injection - FOR ORTHO USE ONLY, ONE TIME INJECTION, 1 dose, Starting on Fri08/17/21 at 0946, Until Fri08/17/21 at 0946 Given 08/17/2021 9:46 AM EDT 30 mg lidocaine (PF) 10 mg/mL (1 %) 4 mL injection (XYLOCAINE) 4 mL, Injection - FOR ORTHO USE ONLY, ONE TIME INJECTION, 1 dose, Starting on Fri08/17/21 at 0946, Until Fri08/17/21 at 0946 Given 08/17/2021 9:46 AM EDT 4 mL Additional Source Comments INFORMATION SOURCE (unrecogn ized section and content) DATE CREATED AUTHOR AUTHOR'S ORGANIZ ATION 10/15/2017 [facility] DATE CREATED AUTHOR AUTHOR'S ORGANIZ ATION 10/10/2022 [facility] DATE CREATED AUTHOR AUTHOR'S ORGANIZ ATION 11/27/2022 [facility] Source Comments (unrecognize d section and content) In the event this informatio n is protected by the Federal Confidentiality of Alcohol and Drug Abuse Patient Records regulations: The Federal rules restrict any use of the information to criminally investigate or prosecute any alcohol or drug abuse patient.[facility] the event this information is protected by the Federal Confidentiality of Alcohol and Drug Abuse Patient Records regulations: The Federal rules restrict any use of the information to criminally investigate or prosecute any alcohol or drug abuse patient.[facility] the event this information is protected by the Federal Confidentiality of Alcohol and Drug Abuse Patient Records regulations: The Federal rules restrict any use of the information to criminally investigate or prosecute any alcohol or drug abuse patient.[facility] the event this information is protected by the Federal Confidentiality of Alcohol and Drug Abuse Patient Records regulations: The Federal rules restrict any use of the information to criminally investigate or prosecute any alcohol or drug abuse patient.[facility] the event this information is protected by the Federal Confidentiality of Alcohol and Drug Abuse Patient Records regulations: The Federal rules restrict any use of the information to criminally investigate or prosecute any alcohol or drug abuse patient.[facility] the event this information is protected by the Federal Confidentiality of Alcohol and Drug Abuse Patient Records regulations: The Federal rules restrict any use of the information to criminally investigate or prosecute any alcohol or drug abuse patient.[facility] the event this information is protected by the Federal Confidentiality of Alcohol and Drug Abuse Patient Records regulations: The Federal rules restrict any use of the information to criminally investigate or prosecute any alcohol or drug abuse patient.[facility] the event this information is protected by the Federal Confidentiality of Alcohol and Drug Abuse Patient Records regulations: The Federal rules restrict any use of the information to criminally investigate or prosecute any alcohol or drug abuse patient.[facility] Hospital[facility] the event this information is protected by the Federal Confidentiality of Alcohol and Drug Abuse Patient Records regulations: The Federal rules restrict any use of the information to criminally investigate or prosecute any alcohol or drug abuse patient.[facility] Hospital[facility] the event this information is protected by the Federal Confidentiality of Alcohol and Drug Abuse Patient Records regulations: The Federal rules restrict any use of the information to criminally investigate or prosecute any alcohol or drug abuse patient.[facility] Hospital[facility] the event this information is protected by the Federal Confidentiality of Alcohol and Drug Abuse Patient Records regulations: The Federal rules restrict any use of the information to criminally investigate or prosecute any alcohol or drug abuse patient.[facility] Hospital[facility] the event this information is protected by the Federal Confidentiality of Alcohol and Drug Abuse Patient Records regulations: The Federal rules restrict any use of the information to criminally investigate or prosecute any alcohol or drug abuse patient.[facility] Hospital[facility] the event this information is protected by the Federal Confidentiality of Alcohol and Drug Abuse Patient Records regulations: The Federal rules restrict any use of the information to criminally investigate or prosecute any alcohol or drug abuse patient.[facility] Hospital[facility] the event this information is protected by the Federal Confidentiality of Alcohol and Drug Abuse Patient Records regulations: The Federal rules restrict any use of the information to criminally investigate or prosecute any alcohol or drug abuse patient.[facility] Care Teams (unrecognized sec tion and content) [employer] Consultant Relationship Specialty Start Date End Date Majo Mays MD [address] [facility] [address] [place] [address] PCP - General Internal Medicine 11/14/20 Gt Crawford MD [address] [facility] [address] [place] [address] Home Care Physician Orthopedics 03/13/20 Gt Crawford MD [address] [place] [address] Referring Orthopedics 03/13/20 [employer] Consultant Relationship Specialty Start Date End Date Majo Mays MD [address] [facility] [address] [place] [address] PCP - General Internal Medicine 11/14/20 Gt Crawford MD [address] [place] [address] Home Care Physician Orthopedics 03/13/20 Gt Crawford MD [address] [place] [address] Referring Orthopedics 03/13/20 [employer] Consultant Relationship Specialty Start Date End Date Majo Mays MD [address] [facility] [address] [place] [address] PCP - General Internal Medicine 11/14/20 Gt Crawford MD [address] [place] [address] Home Care Physician Orthopedics 03/13/20 Gt Crawford MD [address] [place] [address] Referring Orthopedics 03/13/20 [employer] Consultant Relationship Specialty Start Date End Date Majo Mays MD [address] [facility] [address] [place] [address] PCP - General Internal Medicine 11/14/20 Gt Crawford MD [address] [place] [address] Home Care Physician Orthopedics 03/13/20 Gt Crawford MD [address] [facility] [address] [place] [address] Referring Orthopedics 03/13/20 [employer] Consultant Relationship Specialty Start Date End Date Majo Mays MD [address] [facility] [address] [place] [address] PCP - General Internal Medicine 11/14/20 Gt Crawford MD [address] [facility] [address] [place] [address] Home Care Physician Orthopedics 03/13/20 Gt Crawford MD [address] [facility] [address] [place] [address] Referring Orthopedics 03/13/20 [employer] Consultant Relationship Specialty Start Date End Date Majo Mays MD [address] [facility] [address] [place] [address] PCP - General Internal Medicine 11/14/20 Gt Crawford MD [address] [facility] [address] [place] [address] Home Care Physician Orthopedics 03/13/20 Gt Crawford MD [address] [facility] [address] [place] [address] Referring Orthopedics 03/13/20 [employer] Consultant Relationship Specialty Start Date End Date Majo Mays MD [address] [facility] [address] [place] [address] PCP - General Internal Medicine 11/14/20 Gt Crawford MD [address] [facility] [address] [place] [address] Home Care Physician Orthopedics 03/13/20 tG Crawford MD [address] [address] Referring Orthopedics 03/13/20 [employer] Consultant Relationship Specialty Start Date End Date Majo Mays MD [address] [facility] [address] [place] [address] PCP - General Internal Medicine 11/14/20 Gt Crawford MD [address] [place] [address] Home Care Physician Orthopedics 03/13/20 Gt Crawford MD [address] [place] [address] Referring Orthopedics 03/13/20 [employer] Consultant Relationship Specialty Start Date End Date Majo Mays MD [address] [facility] [address] [place] [address] PCP - General Internal Medicine 11/14/20 10/24/21 Alexander Barraza, ERCO MACHINE OPERATOR.SPIRAL GEAR GENERATOR [address] [place] [address] PCP - General Family Practice 10/25/21 Gt Crawford MD [address] [place] [address] Home Care Physician Orthopedics 03/13/20 Gt Crawford MD [address] [address] Referring Orthopedics 03/13/20 [employer] Consultant Relationship Specialty Start Date End Date Alexander Barraza, ERCO MACHINE OPERATOR.SPIRAL GEAR GENERATOR [address] [place], [place] [id number] PCP - General Family Practice 10/25/21 Gt Crawford MD [address] [address] Home Care Physician Orthopedics 03/13/20 Gt Crawford MD [address] [address] Referring Orthopedics 03/13/20 [employer] Consultant Relationship Specialty Start Date End Date Alexander Barraza, ERCO MACHINE OPERATOR.SPIRAL GEAR GENERATOR [address] [place] [address] PCP - General Family Practice 10/25/21 Gt Crawford MD [address] [address] Home Care Physician Orthopedics 03/13/20 Gt Crawford MD [address] [address] Referring Orthopedics 03/13/20 [employer] Consultant Relationship Specialty Start Date End Date Alexander Barraza, ERCO MACHINE OPERATOR.SPIRAL GEAR GENERATOR [address] [place] [address] PCP - General Family Medicine 10/25/21 Gt Crawford MD [address] [address] Home Care Provider Orthopedics 03/13/20 Gt Crawford MD [address] [address] Referring Orthopedics 03/13/20 [employer] Consultant Relationship Specialty Start Date End Date Alexander Barraza, ERCO MACHINE OPERATOR.SPIRAL GEAR GENERATOR [address] [place] [address] PCP - General Family Medicine 10/25/21 Gt Crawford MD [address] [phone] Home Care Provider Orthopedics 03/13/20 Gt Crawford MD [address] [phone] Referring Orthopedics 03/13/20 Reason for Visit (unrecogniz ed section and content) Reason Comments Patient Update Reason Comments F/U 6 Month Acute thrombosis of splenic vein Reason Comments Radiology Pre Procedure Instructions Reason Onset Date Comments Population Health Navigation Outreach 10/25/2021 [employer] Reason Onset Date Comments Refill Request 11/18/2021 Reason Comments Appointment Reason Comments Follow Up Acute thrombosis of splenic vein Established Patient FOR RECORDS PERTAINING TO PATIENTS WHO ARE OR HAVE BEEN ENROLLED IN A CHEMICAL DEPENDENCY/SUBSTANCEABUSE PROGRAM, SOME INFORMATION MAY BE OMITTED. This clinical summary was aggregated from multiple sources. Caution should be exercised in using it in the provision of clinical care. This summary normalizes information from multiple sources, and as a consequence, information in this document may materially change the coding, format and clinical context of patient data. In addition, data may be omitted in some cases. CLINICAL DECISIONS SHOULD BE BASED ON THE PRIMARY CLINICAL RECORDS. [facility]. provides no warranty or guarantee of the accuracy or completeness of information in this document.
[2023-04-16 23:08] LABS: Thyroid Stim Hormone (TSH) 0.32 uIU/mL (0.358-3.74)
== END | disposition home or self-care (01) ==
PROVIDERS: Visit Provider Nurse Practitioner
DX: E03.9 Hypothyroidism, unspecified (principal)
CPT/HCPCS: 84443

== ENCOUNTER → 2023-06-12 | Outpatient (CLI) | payer MEDICARE, SELFPAY ==
--- OUTSIDE RECORDS SUMMARY | 2023-06-12 22:46 | XMS RPT_ITS | CCD ---
Author Name Unknown Address [address] [place] [address] Organization [facility] Care Team Providers Care Filter Press Tender Head Name Role Phone MADI ALEXANDER Unavailable Unavailable BARRAZA, ALEXANDER Unavailable Unavailable NO REFERRING DR Unavailable Unavailable BARRAZA, ALEXANDER L Unavailable Unavailable MADI ALEXANDER L Unavailable Unavailable Gt Crawford MD Unavailable Gt Crawford MD Unavailable [phone] Davon DOVE [facility] Primary Care Provider [phone] Davon DOVE [facility] Primary Care Provider [phone] Madi DIRECTOR BIOLOGICS.Alexander CINTRON Primary Care Provide r Gt Crawford MD Unavailable [phone] Gt Crawford MD Unavailable [phone] Madi DIRECTOR BIOLOGICS.Alexander CINTRON Primary Care Provide r LILI OJEDA [...] / polymyxin b; Translations: [POLYSPORIN] Drug Allergy [facility] Repository (18 sources) sulfiSOXAZOLE; Translations: [GANTRISIN] Drug Allergy 6 Cough, Other: See Comments [facility] Repository (1 source) SHELLFISH CONTAINING; Translations: [SHELLFISH CONTAINING] Propensity to adverse reactions (disorder) [facility] Repository (1 source) SULFA(SULFONAMID E AN; Translations: [SULFA(SULFONAMI DE AN] Propensity to adverse reactions (disorder) [facility] Repository (1 source) Shellfish; Translations: [SHELLFISH] Propensity to adverse reactions to food (disorder) 3 AOF [facility] Repository (17 sources) Sulfonamides (Antibiotic); Translations: [SULFA (SULFONAMIDE ANTIBIOTICS)] Propensity to adverse reactions to drug (disorder) 2 Shortness of Breath [facility] Repository (17 sources) BACITRACIN-POLYM YXIN B; Translations: [BACITRACIN-POLY MYXIN B] Propensity to adverse reactions to drug (disorder) 6 Rash, Hives [facility] Repository (16 sources) Vancomycin; Translations: [VANCOMYCIN] Drug Allergy 1 Rash [facility] Medications Current Medications Medication Drug Class(es) [...] 96.6 [degF] Lili Ojeda MD Work Phone: [facility] 09-10-2022 10:29-0400 Body weight 113.04 kg Lili Ojeda MD Work Phone: [facility] 09-10-2022 10:29-0400 Diastolic blood pressure 66 mm[Hg] Lili Ojeda MD Work Phone: [facility] 09-10-2022 10:29-0400 Heart rate 80 /min Lili Ojeda MD Work Phone: [facility] 09-10-2022 10:29-0400 SaO2% (BldA) [Mass fraction] 95 % Lili Ojeda MD Work Phone: [facility] 09-10-2022 10:29-0400 Systolic blood pressure 105 mm[Hg] Lili Ojeda MD Work Phone: [facility] 09-04-2021 10:28-0400 Body temperature 97 [degF] Lili Ojeda MD Work Phone: [facility] 09-04-2021 10:28-0400 Body weight 106.19 kg Lili Ojeda MD Work Phone: [facility] 09-04-2021 10:28-0400 Diastolic blood pressure 77 mm[Hg] Lili Ojeda MD Work Phone: [facility] 09-04-2021 10:28-0400 Heart rate 88 /min Lili Ojeda MD Work Phone: [facility] 09-04-2021 10:28-0400 SaO2% (BldA) [Mass fraction] 97 % Lili Ojeda MD Work Phone: [facility] 09-04-2021 10:28-0400 Systolic blood pressure 127 mm[Hg] Lili Ojeda MD Work Phone: [facility] 08-17-2021 09:33-0400 Body height 167.6 cm Alvin Vásquez MD Work Phone: [facility] 08-17-2021 09:33-0400 Body weight 102.51 kg Alvin Vásquez MD Work Phone: [facility] Encounters Encounter Date Encounter Type Care Provider Facility Start: 11-26-2022 End: 11-26-2022 Emergency department patient visit ALEXANDER BARRAZA Facility:[facility] Start: 11-25-2022 End: 11-26-2022 ambulatory ALEXANDERJadiel BARRAZA Facility:[facility] Start: 09-10-2022 End: 09-10-2022 ambulatory LILI OJEDA Facility:[facility] Start: 09-10-2022 End: 09-10-2022 Office outpatient visit [...] Author Start: 07-03-2025 DIABETES SCREEN DIABETES SCREEN [facility] Start: 03-28-2025 Urine microalbumin profile DTAP,TDAP,TD (2 - Td or Tdap) [facility] Start: 10-09-2024 DIABETES SCREEN DIABETES SCREEN [facility] Start: 09-04-2024 DIABETES SCREEN DIABETES SCREEN [facility] Start: 08-05-2024 DIABETES SCREEN DIABETES SCREEN [facility] Start: 09-11-2023 BP CONTROLLED (<130/80) BP CON TROLLED (<130/80) [facility] Start: 12-20-2022 Influenza vaccination INFLUENZ A (Season Ended) [facility] Start: 09-04-2022 BP CONTROLLED (<130/80) BP CON TROLLED (<130/80) [facility] Start: 04-21-2022 ADVANCE DIRECTIVE DISCUSSION ADVANCE DIRECTIVE DISCUSSION [facility] Start: 12-20-2021 Influenza vaccination C [facility] Start: 10-23-2021 End: 12-23-2021 CBC W Auto Differential panel - Blood CBC + DIFF Lab Routine Abdominal distention Abnormal levels of other serum enzymes Expected: 10/23/2021, Expires: 12/23/2021 [facility] Work Phone: Immunizations Immunization Date Immunization Notes Care Provider Nasim bernardpahni 03-28-2015 tetanus toxoid, redu jane diphtheria toxoid, and acellular pertussis vaccine, adsorbed Alvin Vásquez MD Work Phone: [facility] Payers Date Payer Category Payer Medicare HU[employer]NA MEDICARE HU[employer]NA MEDICARE PPO [id number] 2022-Present [phone] [place] [address] PPO [id number] 2017 Medicare HUMANA MEDICARE HUMANA MEDICARE PPO [id number] 2017-Present [phone] [place] [address] PPO [id number] 2017 Private Health Insurance [id number] Social History Date Type Detail Facility Start: 05-26-2014 End: 03-02-2020 Tobacco smoking status NHIS Ex-smoker [facility] End: 05-26-1981 History of tobacco use Current smoker [facility] Start: 05-26-2014 End: 03-02-2020 Tobacco use and exposure Smokeless tobacco non-user [facility] Start: 05-18-2021 End: 09-10-2022 Alcohol intake Current non-drinker of alcohol (finding) [facility] Start: 03-17-2020 History SDOH Financial 5 [facility] Start: 03-17-2020 History SDOH Food Worry 1 [facility] Start: 03-17-2020 History SDOH Transpo rt Med 2 [facility] Start: 1955 Sex Assigned At Female C [facility] Start: 07-28-2021 End: 08-07-2021 Exposure to SARS-CoV-2 (event) Unable to assess [facility] Start: 08-07-2021 End: 11-12-2021 Exposure to SARS-CoV-2 (event) Not sure [facility] End: 05-26-1981 History of tobacco use Cigarette Smoker [facility] Work Phone: Medical Equipment Procedure Code Equipment Code Equipment Origin al Text Equipment Identifier Dates Cement Simplex P Bone Radiopaque Full Dose Sterile - [id number] Start: 03-13-2020 Cement Simplex P Bone Radiopaque Full Dose Sterile - [id number] Start: 07-31-2020 Component Triath tova 5 Femoral Cruciate Retain Cemented Knee Right - [id number] Start: 03-13-2020 Insert Triathlon 4 9mm Tibial Bearing Cruciate Retain Sterile Knee - [id number] Start: 03-13-2020 Component Triath tova 5 Femoral Cruciate Retain Cemented Knee Left - [id number] Start: 07-31-2020 Insert Triathlon 4 9mm Tibial Bearing Cruciate Retain Sterile Knee - [id number] Start: 07-31-2020 Component Triath tova 35mm 10mm Patellar Asymmetric Knee - [id number] Start: 03-13-2020 Component Triath tova 35mm 10mm Patellar Asymmetric Knee - [id number] Start: 07-31-2020 Baseplate Triath tova 4 Tibial Primary Cement Knee - [id number] Start: 03-13-2020 Baseplate Triath tova 4 Tibial Primary Cement Knee - [id number] Start: 07-31-2020 Goals Date Patient Goal Desired Activity /State Clinical Notes 01-04-2021 to 09-10-2022 Patient InstructionsLili Ojeda MD - 09/10/2022 10:54 AM EDTTelephone Encounter - Bekah Mahan LPN - 07/12/2022 8:56 AM EDTTelephone Encounter - Magnolia March - 07/05/2022 1:28 PM EDT Note Date & Type Note Facility 09-10-2022 Note HNO ID: [id number] Author: Lili Ojeda MD Service: ? Author [...] with more than 50% of the total iunv-no-znmk time of the visit in counseling / [...] Lupus Erythematosus Sister (more content not included)... [facility] 09-10-2022 Instructions Lili Ojeda MD - 09/10/2022 11:37 AM EDT Please schedule follow-up with Dr. Ojeda Thank you documented in this encounter [facility] 09-10-2022 History of Presen t illness [...] with more than 50% of the total mitu-ob-cbkt time of the visit in counseling / [...] Range Status 07/03/2022 7.9 % Final Abs [place] Date Value Ref Range Status 07/03/2022 0.52 [...] 38 Lili Ojeda MD Cc: Alexander Barraza APRN.OYSTERMAN Chase Paz MD documented in this encounter [facility] 07-12-2022 Miscellaneous Notes Paperwork received 07/12/22, signed and faxed back to [facility] today. Patient called and said that she needs a signed paper from , and it needs to be sent to [facility], Dr. Ricketts. Fax number [phone] documented in this encounter [facility] 10-25-2021 Note HNO ID: [id number] Author: Megan Unger Service: ? Author Type: [...] Care Gap or Scheduling/Wellness visits Payer: Payor: [employer] MEDICARE / Plan: HUMANA MEDICARE PPO / [...] Megan Unger October 25, 2021 5:15 PM [facility] 10-25-2021 History of Presen t illness [...] Care Gap or Scheduling/Wellness visits Payer: Payor: [employer] MEDICARE / Plan: HUMANA MEDICARE PPO / [...] 2021 5:15 PM documented in this encounter [facility] 10-25-[address] Ojeda has responded to pt Angelika Zayas, RN documented in this encounter [facility] 10-25-2021 Note Patient Outreach (ANDRE TNROSALINE) POPPY CARRERA ([id number]) 1955 [facility] Date Time Provider Department 10/25/21 MEGAN UNGER During your visit today, we recorded the following information about you: Megan Unger 10/25/2021 5:19 PM Signed [facility] NAVIGATION OUTREACH Action/JV corado Patient due for the following: Annual exam Confirm pcp Mammogram - ordered on 12/28/2020 Advance Directives Colorectal Cancer Screening Unable to contact patient by phone, full [employer] message sent Pt identified by name and : NO Outreach Outcome/Action Unable to reach patient: Phone number not valid / voicemail full [employer] message sent Did you use a PCP [...] Encounter Status:Closed by MEGAN UNGER on 10/25/21 [facility] 10-23-2021 Miscellaneous Notes You are scheduled for a CT guided liver biopsy, On 11/12/2021. You are scheduled for 9:00 am and Report to [facility]: Ambulatory surgery waiting area on first floor. [...] if they are not done at a [facility] facility. . 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 Private car. You will need a responsible adult to accompany you to and from the procedure. documented in this encounter [facility] 10-17-2021 History of Presen t illness [...] TIME: 7:56 AM documented in this encounter [facility] 09-05-2021 Miscellaneous Notes I spoke with patient. Patient reports pain in abdomen. She has discoloration at [facility], time of CT abdomen scan in July. Plan for quick abdominal exam today in [place] at 12:10-12:30. She declined consideration for ER [...] a blood thinner documented in this encounter [facility] 09-04-2021 History of Presen t illness [...] was cervical polyp <7 mm. Plan: Continue APPLIANCE FIXER follow-up, seen on 05/18/2021 Return in about 52 weeks (around 09/03/2022) for follow-up with provider. High complexity decision making/ counseling/ care I spent 20 minutes in the visit, with more than 50% of the total mifu-ac-yrph time of the visit in counseling / [...] 09/04/2021 2.07 1.00 - 4.00 k/uL Final [place]% Date Value Ref Range Status 09/04/2021 9.3 % Final Abs [place] Date Value Ref Range Status 09/04/2021 0.46 [...] Erin McKelvey, MD documented in this encounter [facility] 08-17-2021 History of Presen t illness Narrative Associated Order(s): Large Joint Arthro/Inj: R shoulder joint Images from the original note were not included. ORTHOPAEDIC SHOULDER & ELBOW SERVICE HISTORY & PHYSICAL EXAM CHIEF COMPLAINT: Right shoulder pain REFERRING PROVIDER: Alexander Barraza (Artie) [address] [facility] [address] [place] [id number] HISTORY OF PRESENT ILLNESS: Poppy Carrera is [...] arm test: negative Biceps/magaly Signs - Right Love's test: positive Clicking/popping: positive Speed's test: positive [...] REFERRING PHYSICIAN: The patient was referred to ca for consultation by the following physician. This consultation note will be sent to the following physician by either mail or electronic medical record. Alexander Barraza ([facility]) [address] [facility] [address] [employer] [address] -- X-rays next appointment: no Gown needed: no Alvin Vásquez MD Shoulder & Elbow Surgeon Department of Orthopaedic Surgery [facility] Medical Decision Making -- documented in this encounter [facility] 08-17-2021 Miscellaneous Notes Radiology Service Progress [...] 2021 8:42 AM documented in this encounter [facility] documented as of this encounter (statuses as of 08/08/2021) [facility] History of Past illness Narrative* Problem [...] of this encounter (statuses as of 08/18/2021) [facility] History of Past illness Narrative* Problem [...] of this encounter (statuses as of 08/22/2021) [facility] History of Past illness Narrative* Problem [...] of this encounter (statuses as of 09/05/2021) [facility] History of Past illness Narrative* Problem [...] of this encounter (statuses as of 09/05/2021) [facility] History of Past illness Narrative* Problem [...] of this encounter (statuses as of 09/10/2021) [facility] History of Past illness Narrative* Problem [...] of this encounter (statuses as of 10/18/2021) [facility] History of Past illness Narrative* Problem [...] of this encounter (statuses as of 10/23/2021) [facility] History of Past illness Narrative* Problem [...] of this encounter (statuses as of 10/25/2021) [facility] History of Past illness Narrative* Problem [...] of this encounter (statuses as of 10/25/2021) [facility] History of Past illness Narrative* Problem [...] of this encounter (statuses as of 11/21/2021) [facility] History of Past illness Narrative* Problem [...] of this encounter (statuses as of 07/12/2022) [facility] History of Past illness Narrative* Problem [...] of this encounter (statuses as of 10/10/2022) [facility] note* Diagnosis Chronic right shoulder pain- Primary Pain in joint, shoulder region [facility]* Diagnosis Right shoulder pain, unspecified chronicity- Primary documented in this encounter [facility]* Diagnosis 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, unspecified Liver lesion Other specified disorders of liver Abnormal finding present on diagnostic imaging of uterus documented in this encounter [facility] note* Diagnosis Abdominal distention- Primary Flatulence, eructation, and gas pain Abnormal levels of other serum enzymes Abdominal distention Flatulence, eructation, and gas pain Abnormal levels of other serum enzymes Right upper quadrant pain Abdominal pain, right upper quadrant documented in this encounter [facility]* Diagnosis Anxiety neurosis- Primary Anxiety state, unspecified Acute thrombosis of splenic vein documented [facility] this encounter [facility]* Diagnosis Acute thrombosis of splenic vein- Primary Liver lesion Other specified disorders of liver documented in this encounter [facility] for referral (narrative)* Diagnostic Procedure Only (Routine) - Authorized Specialty Diagnoses / Procedures Referred By Юлия rogers Referred To Contact XR IMAGING Diagnoses Chronic right shoulder pain Procedures XR SHOULDER GENERAL 3V OR MORE AP/TRUE AP/OTHER RIGHT RADEX SHOULDER COMPLETE MINIMUM 2 VIEWS Alvin Vásquez MD [address] [facility] [facility] [address] [place] [address] Xr Imaging Referral ID Status Reason Start Date Expiration Date Visits Requested Visits Authorized [id number] Authorized Auto-Generat ed Referral 08/08/2021 09/06/2022 1 1 [facility] for referral (narrative)* - Pending Review Specialty Diagnoses / Procedures Referred By Contreta t Referred To Contact Physical Therapy Diagnoses Right shoulder pain, unspecified chronicity Procedures CONSULT TO PHYSICAL THERAPY Alvin Vásquez MD [address] [place] [address] Referral ID Status Reason Start Date Expiration Date V isits Requested Visits Authorized [id number] Pending Review 08/17/2021 11/15/2021 1 1 [facility] for visit Narrative* Diagnostic Procedure Only (Routine) - Closed Specialty Diagnoses / Procedures Referred By Contac t Referred To Contact XR IMAGING Diagnoses Chronic right shoulder pain Procedures XR SHOULDER GENERAL 3V OR MORE AP/TRUE AP/OTHER RIGHT RADEX SHOULDER COMPLETE MINIMUM 2 VIEWS Alvin Vásquez MD [address] [facility] [place] [address] Xr Imaging Referral ID Status Reason Start Date Expiration Date V isits Requested Visits Authorized [id number] Closed Auto-Generate d Referral 08/08/2021 09/06/2022 1 1 [facility] for visit Narrative* Diagnostic Procedure Only (Routine) - Closed Specialty Diagnoses / Procedures Referred By Contac t Referred To Contact Radiology / RADIO MRI [facility] Diagnoses RUQ PAINMRI WITH MRCP OF ABDOMEN DX:R 74.8 ABNORMAL LEVELS OF OTHER SERUM ENZYMES . ROUTINEDX: R10.11 RIGHT UPPER QUADRANT PAIN DOCTOR CHASE PAZ M.D. UPIN [id number] Procedures MRI MRCP 300 Chase Paz MD [facility] [address] [place] [address] Radio Mri [facility] [address] [place] [address] Referral ID Status Reason Start Date Expiration Date Visits Re quested Visits Authorized [id number] Closed 10/16/2021 11/15/2021 1 1 [facility] Summary Purpose Family History No Family History Records FoundNo Family History Records FoundNo Family History Records FoundNo Family History Records Found Advance Directives No Advanced Directives Records FoundDocuments on File Type Date Recorded Patient Technician Plant 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 Expl 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 Advance Directive(s) 08/05/2021 10:06 AM [...] Documents on File Type Date Recorded Patient Technician Plant 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 Expl anation Advance Directive(s) 08/05/2021 10:06 AM [...] Documents on File Type Date Recorded Patient Technician Plant 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 Expl anation Advance Directive(s) 10/25/2021 4:21 PM [...] Documents on File Type Date Recorded Patient Technician Plant 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 Expl anation Advance Directive(s) 11/12/2021 7:46 AM [...] DATE CREATED AUTHOR AUTHOR'S ORGANIZ ATION 10/15/2017 [facility] DATE CREATED AUTHOR AUTHOR'S ORGANIZ ATION 10/10/2022 [facility] DATE CREATED AUTHOR AUTHOR'S ORGANIZ ATION 11/27/2022 [facility] Source Comments (unrecognize d section and content) In the event this informatio n is protected by the Federal Confidentiality of Alcohol and Drug Abuse Patient Records regulations: The Federal rules restrict any use of the information to criminally investigate or prosecute any alcohol or drug abuse patient.[facility] the event this information is protected by the Federal Confidentiality of Alcohol and Drug Abuse Patient Records regulations: The Federal rules restrict any use of the information to criminally investigate or prosecute any alcohol or drug abuse patient.[facility] Hospital[facility] the event this information is protected by the Federal Confidentiality of Alcohol and Drug Abuse Patient Records regulations: The Federal rules restrict any use of the information to criminally investigate or prosecute any alcohol or drug abuse patient.[facility] Hospital[facility] the event this information is protected by the Federal Confidentiality of Alcohol and Drug Abuse Patient Records regulations: The Federal rules restrict any use of the information to criminally investigate or prosecute any alcohol or drug abuse patient.[facility] Hospital[facility] the event this information is protected by the Federal Confidentiality of Alcohol and Drug Abuse Patient Records regulations: The Federal rules restrict any use of the information to criminally investigate or prosecute any alcohol or drug abuse patient.[facility] Hospital[facility] the event this information is protected by the Federal Confidentiality of Alcohol and Drug Abuse Patient Records regulations: The Federal rules restrict any use of the information to criminally investigate or prosecute any alcohol or drug abuse patient.[facility] Hospital[facility] the event this information is protected by the Federal Confidentiality of Alcohol and Drug Abuse Patient Records regulations: The Federal rules restrict any use of the information to criminally investigate or prosecute any alcohol or drug abuse patient.[facility] Hospital[facility] the event this information is protected by the Federal Confidentiality of Alcohol and Drug Abuse Patient Records regulations: The Federal rules restrict any use of the information to criminally investigate or prosecute any alcohol or drug abuse patient.[facility] Hospital[facility] the event this information is protected by the Federal Confidentiality of Alcohol and Drug Abuse Patient Records regulations: The Federal rules restrict any use of the information to criminally investigate or prosecute any alcohol or drug abuse patient.[facility] Hospital[facility] the event this information is protected by the Federal Confidentiality of Alcohol and Drug Abuse Patient Records regulations: The Federal rules restrict any use of the information to criminally investigate or prosecute any alcohol or drug abuse patient.[facility] HospitalIn the event this information is protected by the Federal Confidentiality of Alcohol and Drug Abuse Patient Records regulations: The Federal rules restrict any use of the information to criminally investigate or prosecute any alcohol or drug abuse patient.[facility] Hospital[facility] the event this information is protected by the Federal Confidentiality of Alcohol and Drug Abuse Patient Records regulations: The Federal rules restrict any use of the information to criminally investigate or prosecute any alcohol or drug abuse patient.[facility] HospitalIn the event this information is protected by the Federal Confidentiality of Alcohol and Drug Abuse Patient Records regulations: The Federal rules restrict any use of the information to criminally investigate or prosecute any alcohol or drug abuse patient.[facility] Hospital[facility] the event this information is protected by the Federal Confidentiality of Alcohol and Drug Abuse Patient Records regulations: The Federal rules restrict any use of the information to criminally investigate or prosecute any alcohol or drug abuse patient.[facility] Care Teams (unrecognized sec tion and content) Filter Press Tender Head Relationship Specialty Start Date End Date Majo Mays MD [address] [facility] [address] [place] [address] PCP - General Internal Medicine 11/14/20 Gt Crawford MD [address] [facility] [address] [place] [address] Home Care Physician Orthopedics 03/13/20 Gt Crawford MD [address] [place] [address] Referring Orthopedics 03/13/20 Filter Press Tender Head Relationship Specialty Start Date End Date Majo Mays MD [address] [facility] [address] [place] [address] PCP - General Internal Medicine 11/14/20 Gt Crawford MD [address] [place] [address] Home Care Physician Orthopedics 03/13/20 Gt Crawford MD [address] [place] [address] Referring Orthopedics 03/13/20 Filter Press Tender Head Relationship Specialty Start Date End Date Majo Mays MD [address] [facility] [address] [place] [address] PCP - General Internal Medicine 11/14/20 Gt Crawford MD [address] [place] [address] Home Care Physician Orthopedics 03/13/20 Gt Crawford MD [address] [place] [address] Referring Orthopedics 03/13/20 Filter Press Tender Head Relationship Specialty Start Date End Date Majo Mays MD [address] [facility] [address] [place] [address] PCP - General Internal Medicine 11/14/20 Gt Crawford MD [address] [place] [address] Home Care Physician Orthopedics 03/13/20 Gt Crawford MD [address] [facility] [address] [place] [address] Referring Orthopedics 03/13/20 Filter Press Tender Head Relationship Specialty Start Date End Date Majo Mays MD [address] [facility] [address] [place] [address] PCP - General Internal Medicine 11/14/20 Gt Crawford MD [address] [facility] [address] [place] [address] Home Care Physician Orthopedics 03/13/20 Gt Crawford MD [address] [facility] [address] [place] [address] Referring Orthopedics 03/13/20 Filter Press Tender Head Relationship Specialty Start Date End Date Majo Mays MD [address] [facility] [address] [place] [address] PCP - General Internal Medicine 11/14/20 Gt Crawford MD [address] [facility] [address] [place] [address] Home Care Physician Orthopedics 03/13/20 Gt Crawford MD [address] [facility] [address] [place] [address] Referring Orthopedics 03/13/20 Filter Press Tender Head Relationship Specialty Start Date End Date Majo Mays MD [address] [facility] [address] [place] [address] PCP - General Internal Medicine 11/14/20 Gt Crawford MD [address] [facility] [address] [place] [address] Home Care Physician Orthopedics 03/13/20 Gt Crawford MD [address] [address] Referring Orthopedics 03/13/20 Filter Press Tender Head Relationship Specialty Start Date End Date Majo Mays MD [address] [facility] [address] [place] [address] PCP - General Internal Medicine 11/14/20 Gt Crawford MD [address] [place] [address] Home Care Physician Orthopedics 03/13/20 Gt Crawford MD [address] [place] [address] Referring Orthopedics 03/13/20 Filter Press Tender Head Relationship Specialty Start Date End Date Majo Mays MD [address] [facility] [address] [place] [address] PCP - General Internal Medicine 11/14/20 10/24/21 Alexander Barraza, DIRECTOR [employer] [address] [place] [address] PCP - General Family Practice 10/25/21 Gt Crawford MD [address] [place] [address] Home Care Physician Orthopedics 03/13/20 Gt Crawford MD [address] [address] Referring Orthopedics 03/13/20 Filter Press Tender Head Relationship Specialty Start Date End Date Alexander Barraza, DIRECTOR [employer] [address] [place], [place] [id number] PCP - General Family Practice 10/25/21 Gt Crawford MD [address] [address] Home Care Physician Orthopedics 03/13/20 Gt Crawford MD [address] [address] Referring Orthopedics 03/13/20 Filter Press Tender Head Relationship Specialty Start Date End Date Alexander Barraza, DIRECTOR [employer] [address] [place] [address] PCP - General Family Practice 10/25/21 Gt Crawford MD [address] [address] Home Care Physician Orthopedics 03/13/20 Gt Crawford MD [address] [address] Referring Orthopedics 03/13/20 Filter Press Tender Head Relationship Specialty Start Date End Date Alexander Barraza, DIRECTOR [employer] [address] [place] [address] PCP - General Family Medicine 10/25/21 Gt Crawford MD [address] [address] Home Care Provider Orthopedics 03/13/20 Gt Crawford MD [address] [address] Referring Orthopedics 03/13/20 Filter Press Tender Head Relationship Specialty Start Date End Date Alexander Barraza, DIRECTOR [employer] [address] [place] [address] PCP - General Family Medicine 10/25/21 Gt Crawford MD [address] [id number] Home Care Provider Orthopedics 03/13/20 Gt Crawford MD [address] [id number] Referring Orthopedics 03/13/20 Reason for Visit (unrecogniz [...] BE BASED ON THE PRIMARY CLINICAL RECORDS. [employer] [facility]. provides no warranty or guarantee of the accuracy or completeness of information in this document.
[2023-06-12 23:17] LABS: Absolute Lymphocyte Count 3.98 X10^3/uL (0.83-4.51); Absolute Neutrophil Count 3.1 X10^3/uL (2.0-7.7); Basophil# 0.05 X10^3/uL; Basophil% 0.6 % (0-1); Eosinophils% 1.3 % (0-5); Hematocrit 45.5 % (37-47); Hemoglobin 14.2 g/dL (12.0-15.0); Lymphocyte # 3.98 X10^3/ul (0.83-4.51); Lymphocyte % 49.9 % (19-41); Mean Corp Hgb Conc 31.2 g/dL (32-36); Mean Corpuscular Hgb 28.1 pg (27.0-32.0); Mean Corpuscular Volume 90.1 fL (81-99); Mean Platelet Vol. 10.6 fl (6.2-12.0); Monocyte% 8.8 % (0-10); NRBC Flagged by Analyzer 0 % (0-5); Neutrophil # 3.14 X10^3/uL (2.7-7.7); Neutrophil % 39.3 % (47-70); Platelet Count 270 K/mm3 (150-450); RBC Distribution Width CV 13.7 % (11.6-14.6); RBC Distribution Width SD 45.5 fl (35.1-43.9); Red Blood Count 5.05 M/mm3 (4.2-5.4)
[2023-06-12 23:30] LABS: AST(SGOT) 21 U/L (15-37); Alanine Aminotransfer ALT/SGPT 27 U/L (13-56); Albumin, Serum 3.7 g/dL (3.2-5.0); Alkaline Phosphatase 89 U/L (45-117); Anion Gap 3 (5-15); BUN 19 mg/dL (7-18); BUN/Creat Ratio 26.4 RATIO (10-20); Calcium,Total 8.7 mg/dL (8.5-10.1); Chloride 109 mmol/L (98-107); Cholesterol 184 mg/dL (200); Creatinine, Serum 0.72 mg/dL (0.55-1.02); EST Glomerular Filtration Rate 86 mL/min (>60); Est Glom Filt Rate - Afr Amer 103 mL/min (>60); Globulin 3.7 g/dL (2.2-4.2); Glucose 100 mg/dL (74-106); High Density Lipoprotein 58 mg/dL; Lipase 107 U/L (13-75); Potassium 4.6 mmol/L (3.5-5.1); Protein, Total 7.4 g/dL (6.4-8.2); Sodium Level 139 mmol/L (136-145); Triglycerides 161 mg/dL; Very Low Density Lipoprotein 32 mg/dL (5-40)
== END | disposition home or self-care (01) ==
PROVIDERS: Visit Provider Nurse Practitioner
DX: E78.00 Pure hypercholesterolemia, unspecified (principal); M19.041 Primary osteoarthritis, right hand; M19.042 Primary osteoarthritis, left hand; I10 Essential (primary) hypertension; K85.90 Acute pancreatitis without necrosis or infection, unspecified; F32.A Depression, unspecified; N39.0 Urinary tract infection, site not specified
CPT/HCPCS: 80053; 80061; 83690; 85025